=== PATIENT | male | born 1945 | race Caucasian/White ===

== ENCOUNTER 2017-05-04 09:02 | Inpatient (IN) | payer MEDICARE ==
[~2017-05-04] VITALS: Ht 174 cm; Wt 64.0 kg
[2017-05-04] VITALS (10 sets, daily range): BP systolic 97–119; BP diastolic 54–63; PULSE 86–101; RESP 16–20; TEMP 96.9–99.8; O2SAT 90–99
[~2017-05-04 09:02] MED LIST: ALLO300 PO; COLC.6 PO; NIFE1TAB85 PO; OMEP20TA39 PO
[2017-05-04] MEDS ORDERED: SODIUM CHLOR 0.9% 1000 ML INJ 1,000 ML IV SCH (09:26)
[2017-05-04] MEDS ORDERED: ONDANSETRON HCL 4 MG/2 ML VIAL IVP ONE (09:30)
[2017-05-04] MEDS ORDERED: FAMOTIDINE 20 MG/2 ML VIAL IV PUSH ONE (09:30)
[2017-05-04] MEDS ORDERED: SODIUM CHLORIDE 0.9% FLUSH 10 ML FLUSH IV FLUSH PRN ×2 (09:30→15:00)
--- NOTE | 2017-05-04 09:32 | PD ---
HPI Chief Complaint: General Weakness Time Seen by Provider: 09:17 Travel History International Travel<30 days: No Contact w/Intl Traveler<30days: No Traveled to known affect area: No History of Present Illness HPI The patient is a 72-year-old male who presents emergency department for generalized weakness and difficulty swallowing. The patient states his symptoms started on Friday with posterior sore throat, he then developed a dry nonproductive cough, now has difficulty swallowing. The patient is able swallow liquids, but has difficulty swallowing solids. He now complains of epigastric discomfort. 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 Valenzuela. The patient is scheduled undergo left hip surgery in the near future, saw his primary physician , Dr. Vasquez Hernandez, who referred him to a magnet valve assembler. The patient is scheduled undergo endoscopy next Friday. He has seemed Dr. Rob in the past, but is unsure who is scheduled to perform the endoscopy. He denies any fever, but does note subjective warmth. He does complain of epigastric discomfort and a few episodes of diarrhea. He denies any dysuria, chest pain, shortness of breath. Symptoms are moderate. PFSH Past Medical History Blood Disorders: No Cancer: Yes (SKIN, LYMPHOMA) Cardiovascular Problems: No Chest Pain: No Diabetes: No Diminished Hearing: No Endocrine: No Gastrointestinal Disorders: Yes (ULCER) Glaucoma: No Genitourinary: No Hepatitis: No Hiatal Hernia: Yes Hypertension: Yes Immune Disorder: No Medical other: Yes (ESCALANTE'S ESOPHAGUS) Musculoskeletal: No Neurologic: No Psychiatric: No Reproductive: No Respiratory: No Integumentary: No Thyroid Disease: No Past Surgical History Abdominal Surgery: Yes (LITHOTRIPSY, STONE REMOVAL) Body Medical Devices: RIGHT FEMUR PLATES AND SCREWS, Cardiac Surgery: Yes (STENT BELOW LEFT KNEE) Eye Surgery: Yes (BILAT. CAT. SX) Genitourinary Surgery: Yes (LEFT KIDNEY STONES,) Joint Replacement: No Pacemaker: No Other Surgery: Yes (STRETCHING OF ESOPHAGUS) Social History Alcohol Use: Yes Tobacco Use: Yes (FORMER) Substance Use: No Allergies-Medications (Allergen,Severity, Reaction): Coded Allergies: amlodipine (Unverified Allergy, Severe, 05/04/17) benazepril (Unverified Allergy, Severe, 05/04/17) captopril (Unverified Allergy, Severe, 05/04/17) enalaprilat (Unverified Allergy, Severe, 05/04/17) fosinopril (Unverified Allergy, Severe, 05/04/17) gabapentin (Unverified Allergy, Severe, 05/04/17) gemfibrozil (Unverified Allergy, Severe, 05/04/17) lisinopril (Unverified Allergy, Severe, 05/04/17) quinapril (Unverified Allergy, Severe, 05/04/17) Reported Meds & Prescriptions Reported Meds & Active Scripts Active Colcrys (Colchicine) 0.6 Mg Tab 0.6 Mg PO BID Zyloprim 300 Mg Tab (Allopurinol) 300 Mg Tab 300 Mg PO DAILY Reported Hm Omeprazole (Omeprazole) 20 Mg Tab 20 Mg PO DAILY Procardia Xl (Nifedipine) 30 Mg Tabcr 30 Mg PO DAILY Review of Systems Except as stated in HPI: all other systems reviewed are Neg General / Constitutional: No: Fever HENT: Positive: Sore Throat, No: Headaches, Lightheadedness Cardiovascular: No: Chest Pain or Discomfort Respiratory: No: Shortness of Breath Gastrointestinal: Positive: Nausea, Vomiting, Diarrhea, Abdominal Pain, Dysphagia Genitourinary: No: Dysuria Musculoskeletal: Positive: Weakness Neurologic: Positive: Weakness Physical Exam Narrative GENERAL: Awake, alert, 72 over male who appears his stated age and is in no acute respiratory distress. SKIN: Focused skin assessment warm/dry. HEAD: Atraumatic. Normocephalic. EYES: No injection or drainage. ENT: No nasal bleeding or discharge. Cobblestoning noted but no exudate. NECK: Trachea midline. No JVD. CARDIOVASCULAR: Regular rate and rhythm. No murmur appreciated. Heart rate in the 90s. RESPIRATORY: No accessory muscle use. Clear to auscultation. Breath sounds equal bilaterally. GASTROINTESTINAL: Abdomen soft, minimal epigastric tenderness.. MUSCULOSKELETAL: No obvious deformities. No clubbing. No cyanosis. No edema. NEUROLOGICAL: Awake and alert. No obvious cranial nerve deficits. Motor grossly within normal limits. Normal speech. PSYCHIATRIC: Appropriate mood and affect; insight and judgment normal. Data Data Last Documented VS Vital Signs Date Time Temp Pulse Resp B/P (MAP) Pulse Ox O2 Delivery O2 Flow Rate FiO2 05/04/17 10:38 18 96 Nasal Cannula 3.00 05/04/17 09:10 99.8 97 112/59 (76) Orders Orders Complete Blood Count With Diff (05/04/17:) Comprehensive Metabolic Panel (05/04/17) Lipase (05/04/17:) Lactic Acid (05/04/17:) Urinalysis - C+S If Indicated (05/04/17) Iv Access Insert/Monitor (05/04/17) Ecg Monitoring (05/04/17) Oximetry (05/04/17:) Ondansetron Inj (Zofran Inj) (05/04/17:30) Sodium Chlor 0.9% 1000 Ml Inj (Ns 1000 M (05/04/17:) Sodium Chloride 0.9% Flush (Ns Flush) (05/04/17:) Electrocardiogram (05/04/17:) Chest, Single Ap (05/04/17:) Famotidine Inj (Pepcid Inj) (05/04/17 09:30) Influenzae A/B Antigen (05/04/17:) Blood Culture (05/04/17:) Gastrografin Swallow (05/04/17 ) B-Type Natriuretic Peptide (05/04/17 10:56) Troponin I (05/04/17 10:56) Creatine Kinase (Cpk) (05/04/17 10:56) Admit Order (Ed Use Only) (05/04/17 11:15) Labs Laboratory Tests Test 05/04/17:30 White Blood Count 7.6 TH/MM3 Red Blood Count 2.92 MIL/MM3 Hemoglobin 10.7 GM/DL Hematocrit 29.0 % Mean Corpuscular Volume 99.3 FL Mean Corpuscular Hemoglobin 36.8 PG Mean Corpuscular Hemoglobin Concent 37.0 % Red Cell Distribution Width 12.9 % Platelet Count 275 TH/MM3 Mean Platelet Volume 7.5 FL Neutrophils (%) (Auto) 80.3 % Lymphocytes (%) (Auto) 8.2 % Monocytes (%) (Auto) 10.8 % Eosinophils (%) (Auto) 0.4 % Basophils (%) (Auto) 0.3 % Neutrophils # (Auto) 6.1 TH/MM3 Lymphocytes # (Auto) 0.6 TH/MM3 Monocytes # (Auto) 0.8 TH/MM3 Eosinophils # (Auto) 0.0 TH/MM3 Basophils # (Auto) 0.0 TH/MM3 CBC Comment AUTO DIFF Differential Comment AUTO DIFF CONFIRMED Ovalocytes Blood Urea Nitrogen 38 MG/DL Creatinine 1.37 MG/DL Random Glucose 110 MG/DL Total Protein 9.0 GM/DL Albumin 2.0 GM/DL Calcium Level 8.7 MG/DL Alkaline Phosphatase 131 U/L Aspartate Amino Transf (AST/SGOT) 44 U/L Alanine Aminotransferase (ALT/SGPT) 30 U/L Total Bilirubin 0.5 MG/DL Sodium Level 120 MEQ/L Potassium Level 3.4 MEQ/L Chloride Level 88 MEQ/L Carbon Dioxide Level 23.3 MEQ/L Anion Gap 9 MEQ/L Estimat Glomerular Filtration Rate 51 ML/MIN Lactic Acid Level 1.0 mmol/L Lipase 207 U/L [facility] Medical Decision Making Medical Screen Exam Complete: Yes Emergency Medical Condition: Yes Medical Record Reviewed: Yes Interpretation(s) EKG reveals sinus rhythm with occasional supraventricular premature complex. Nonspecific T wave changes. Heart rate 90. Last Impressions Chest X-Ray 05/04/17 0926 Signed Impressions: Service Date/Time: Thursday, May 04, 2017 09:49 - CONCLUSION: 1. Interstitial vascular prominence characteristic of congestive heart failure. 2. Bibasilar airspace disease. 3. Small bilateral effusions. Crispin Nguyen MD Upper GI/Barium Swallow X-Ray 05/04/17 0000 Signed Impressions: Service Date/Time: Thursday, May 04, 2017 10:10 - CONCLUSION: No evidence of stricture. Crispin Nguyen MD Laboratory Tests Test 05/04/17 09:30 White Blood Count 7.6 TH/MM3 Red Blood Count 2.92 MIL/MM3 Hemoglobin 10.7 GM/DL Hematocrit 29.0 % Mean Corpuscular Volume 99.3 FL Mean Corpuscular Hemoglobin 36.8 PG Mean Corpuscular Hemoglobin Concent 37.0 % Red Cell Distribution Width 12.9 % Platelet Count 275 TH/MM3 Mean Platelet Volume 7.5 FL Neutrophils (%) (Auto) 80.3 % Lymphocytes (%) (Auto) 8.2 % Monocytes (%) (Auto) 10.8 % Eosinophils (%) (Auto) 0.4 % Basophils (%) (Auto) 0.3 % Neutrophils # (Auto) 6.1 TH/MM3 Lymphocytes # (Auto) 0.6 TH/MM3 Monocytes # (Auto) 0.8 TH/MM3 Eosinophils # (Auto) 0.0 TH/MM3 Basophils # (Auto) 0.0 TH/MM3 CBC Comment AUTO DIFF Differential Comment AUTO DIFF CONFIRMED Ovalocytes Blood Urea Nitrogen 38 MG/DL Creatinine 1.37 MG/DL Random Glucose 110 MG/DL Total Protein 9.0 GM/DL Albumin 2.0 GM/DL Calcium Level 8.7 MG/DL Alkaline Phosphatase 131 U/L Aspartate Amino Transf (AST/SGOT) 44 U/L Alanine Aminotransferase (ALT/SGPT) 30 U/L Total Bilirubin 0.5 MG/DL Sodium Level 120 MEQ/L Potassium Level 3.4 MEQ/L Chloride Level 88 MEQ/L Carbon Dioxide Level 23.3 MEQ/L Anion Gap 9 MEQ/L Estimat Glomerular Filtration Rate 51 ML/MIN Lactic Acid Level 1.0 mmol/L Lipase 207 U/L Differential Diagnosis Differential diagnosis includes achalasia, stricture, esophageal motility disorder, sepsis, gastritis, GERD, esophageal spasm, pancreatitis, dehydration, electrolyte abnormality, pneumonia, influenza. Narrative Course IV was established, labs are drawn and sent, and the patient was placed on video telemetry monitoring and continuous pulse oximetry monitoring. EKG was ordered and interpreted. The patient was administered IV fluids, Zofran, and Pepcid. Gastrografin swallow was ordered. Chest x-ray reveals questionable pulmonary edema. Gastrografin swallow reveals no obvious stricture. Sodium is low 120, EMR reveals previous sodiums were 133. The patient appears somewhat dehydrated with lethargy, BNP and troponin were sent to lab with abnormal chest x-ray finding. Patient has for healthcare, therefore, discussed the patient with Dr. Francisco who agrees with admission. He may benefit from evaluation by GI for possible endoscopy while in the hospital. Physician Communication Physician Communication I discussed the patient with Dr. Francisco who agrees with admission. Diagnosis Primary Impression: Hyponatremia Additional Impressions: Dehydration Dysphagia Qualified Codes: R13.10 - Dysphagia, unspecified Condition: Stable Zeb Michel MD May 04, 2017 09:32
[2017-05-04 09:57] LABS: AUTOMATED NEUTROPHIL # 6.1 TH/MM3 (1.8-7.7); BASOPHIL % 0.3 % (0.0-2.0); EOSINOPHIL % 0.4 % (0.0-4.0); HEMOGLOBIN 10.7 GM/DL (13.0-17.0); LYMPH % 8.2 % (9.0-44.0); LYMPHOCYTE # 0.6 TH/MM3 (1.0-4.8); MEAN CELL VOLUME 99.3 FL (80.0-100.0); MEAN CORPUSCULAR HEMOGLOBIN 36.8 PG (27.0-34.0); MEAN PLATELET VOLUME 7.5 FL (7.0-11.0); MONO % 10.8 % (0.0-8.0); MONOCYTE # 0.8 TH/MM3 (0-0.9); NEUT % 80.3 % (16.0-70.0); PLATELET COUNT 275 TH/MM3 (150-450); RED BLOOD COUNT 2.92 MIL/MM3 (4.50-5.90); RED CELL DISTRIBUTION WIDTH 12.9 % (11.6-17.2); WHITE BLOOD COUNT 7.6 TH/MM3 (4.0-11.0)
[2017-05-04 10:39] LABS: ALKALINE PHOSPHATASE 131 U/L (45-117); ALT (GPT) 30 U/L (12-78); AST (GOT) 44 U/L (15-37); BICARBONATE 23.3 MEQ/L (21.0-32.0); BLOOD UREA NITROGEN 38 MG/DL (7-18); CALCIUM 8.7 MG/DL (8.5-10.1); CHLORIDE 88 MEQ/L (98-107); CREATININE 1.37 MG/DL (0.60-1.30); GLOMERULAR FILTRATION RATE 51 ML/MIN (>89); GLUCOSE,RANDOM 110 MG/DL (74-106); TOTAL BILIRUBIN ADULT 0.5 MG/DL (0.2-1.0)
[2017-05-04 10:40] LABS: SODIUM (NA) 120 MEQ/L (136-145)
--- NOTE | 2017-05-04 10:51 | RADRPT ---
EXAM DATE/TIME: 05/04/2017 09:49 [facility] COMPARISON: No previous studies available for comparison. INDICATIONS : Cough. Short of breath. MEDICAL HISTORY : None. SURGICAL HISTORY : Esophagus surgery. ENCOUNTER: Initial ACUITY: 2 weeks PAIN SCORE: 0/10 LOCATION: Bilateral chest FINDINGS: A single view of the chest demonstrates bilateral interstitial vascular congestion. Basilar airspace disease is identified. Costophrenic angles are mildly blunted. CONCLUSION: 1. Interstitial vascular prominence characteristic of congestive heart failure. 2. Bibasilar airspace disease. 3. Small bilateral effusions. Crispin Nguyen MD on May 04, 2017 at 10:48 Board Certified Radiologist. This report was verified electronically.
--- NOTE | 2017-05-04 10:53 | RADRPT ---
EXAM DATE/TIME: 05/04/2017 10:10 [facility] COMPARISON: No previous studies available for comparison. INDICATIONS : Stricture. FLUORO TIME: 0.8 minutes IMAGE COUNT: 6 CONTRAST: 1. Gastrografin (Diatrizoate Meglumine and Diatrizoate Sodium) MEDICAL HISTORY : None. SURGICAL HISTORY : Esophagus surgery. ENCOUNTER: Initial ACUITY: 2 weeks PAIN SCORE: 0/10 LOCATION: Esophagus. FINDINGS: Patient swallowed contrast without difficulty. There is no evidence of aspiration or penetration. T he body of the esophagus is unremarkable. The esophageal transit time is normal. No stricture or significant hiatal hernia is identified. The stomach is grossly unremarkable. CONCLUSION: No evidence of stricture. Crispin Nguyen MD on May 04, 2017 at 10:50 Board Certified Radiologist. This report was verified electronically.
[2017-05-04 12:45] LABS: TROPONIN I 0.94 NG/ML (0.02-0.05)
[2017-05-04] MEDS ORDERED: NIFE10 PO (12:52)
[2017-05-04] MEDS ORDERED: ASPI-516 CHEW (12:52)
[2017-05-04] MEDS ORDERED: OMEP20TA93 PO (12:52)
[2017-05-04] MEDS ORDERED: ASPIRIN 81 MG CHEW TAB CHEW ONE (13:00)
[2017-05-04 13:49] LABS: BACTERIA, URINE RARE /hpf; BILIRUBIN, URINE NEG (NEG); BLOOD, URINE NEG (NEG); GLUCOSE,URINE NEG (NEG); HYALINE CAST, URINE 1 /lpf (RARE); KETONE, URINE NEG (NEG); MUCUS URINE FEW /lpf (OCC); NITRITE,URINE NEG (NEG); PH, URINE 5.5 (5.0-8.5); URINE COLOR YELLOW (YELLW/STRAW); URINE LEUKOCYTE ESTERASE NEG (NEG)
[2017-05-04] MEDS ORDERED: methylPREDNISolone SOD SUCC 125 MG/2 ML VIAL IV PUSH ONE (16:45)
[2017-05-04] MEDS ORDERED: NS + KCL 20 MEQ INJ 1,000 ML IV SCH (16:45)
[2017-05-04] MEDS ORDERED: ONDANSETRON HCL 4 MG/2 ML VIAL IV PUSH PRN (16:45)
--- NOTE | 2017-05-04 16:48 | HHI.HP ---
HPI Service [facility] Hospitalists Primary Care Physician Theresa Griffin MD Admission Diagnosis hyponatremia, dehydration, dysphagia Chief Complaint: cough/unable to swallow Travel History International Travel<30 Days: No Contact w/Intl Traveler <30 Da: No Traveled to Known Affected Are: No History of Present Illness Patient is 72 yo with achalasia,, pad, hx NHL, mgus, htn who presents with difficulty swallowing primarily solids and with persistent cough. The patient presents with a worsening of his dysphagia over past week. He is having trouble swallowing solids and sometimes liquids. The food regurgitates after about 20minutes. The patient denies aspiration. In the past for his achalasia [facility] would perform botox /dilations. Then Dr Mg performed a Heller myotomy and surjit Fundoplication 2015. Seen by GI on 05/02 and they had an egd and dilation planned for this Friday. labwork last week showed dehydration and also NA 120 on 04/30..BL na is around 129/130 Review of Systems Other cough unable to swallow mostly solids. Past Family Social History Past Medical History NHL. radiation MGUS umbilical hernia cataracts right femur fx/orif kidney stones right hip OA achalasia. hx botox/dilations ..Heller myotomy..surjit Fundoplication 2016 gout hyperlipidemia htn PAD. stenting right sfa skin ca..scc mild hyponatremia. Reported Medications Aspirin 81 Mg Chew 81 Mg CHEW DAILY Omeprazole 20 Mg Tab 20 Mg PO DAILY Procardia (Nifedipine) 10 Mg Cap 30 Mg PO DAILY Allergies: Coded Allergies: amlodipine (Unverified Allergy, Severe, 05/04/17) benazepril (Unverified Allergy, Severe, 05/04/17) captopril (Unverified Allergy, Severe, 05/04/17) enalaprilat (Unverified Allergy, Severe, 05/04/17) fosinopril (Unverified Allergy, Severe, 05/04/17) gabapentin (Unverified Allergy, Severe, 05/04/17) gemfibrozil (Unverified Allergy, Severe, 05/04/17) lisinopril (Unverified Allergy, Severe, 05/04/17) quinapril (Unverified Allergy, Severe, 05/04/17) Family History [place] Social History no quit tob 41yrs ago after 1ppd x 15yrs 5-6 drinks per day/whiskey. none in past week. Physical Exam Vital Signs heart reg lung yamil rhonci no jvd abd s/nt ext no edema Vital Signs Date Time Temp Pulse Resp B/P (MAP) Pulse Ox O2 Delivery O2 Flow Rate FiO2 05/04/17 15:22 05/04/17 14:00 92 18 102/58 (73) 97 Nasal Cannula 3.00 05/04/17 13:00 88 18 102/59 (73) 92 Nasal Cannula 3.00 05/04/17 11:00 88 18 102/56 (71) 93 Nasal Cannula 3.00 05/04/17 10:38 18 96 Nasal Cannula 3.00 05/04/17 10:00 86 16 97/54 (68) 94 Nasal Cannula 3.00 05/04/17 09:10 99.8 97 18 112/59 (76) 95 Laboratory Laboratory Tests Test 05/04/17 09:30 05/04/17 11:25 05/04/17 13:28 White Blood Count 7.6 Red Blood Count 2.92 Hemoglobin 10.7 Hematocrit 29.0 Mean Corpuscular Volume 99.3 Mean Corpuscular Hemoglobin 36.8 Mean Corpuscular Hemoglobin Concent 37.0 Red Cell Distribution Width 12.9 Platelet Count 275 Mean Platelet Volume 7.5 Neutrophils (%) (Auto) 80.3 Lymphocytes (%) (Auto) 8.2 Monocytes (%) (Auto) 10.8 Eosinophils (%) (Auto) 0.4 Basophils (%) (Auto) 0.3 Neutrophils # (Auto) 6.1 Lymphocytes # (Auto) 0.6 Monocytes # (Auto) 0.8 Eosinophils # (Auto) 0.0 Basophils # (Auto) 0.0 CBC Comment AUTO DIFF Differential Comment AUTO DIFF CONFIRMED Ovalocytes Blood Urea Nitrogen 38 Creatinine 1.37 Random Glucose 110 Total Protein 9.0 Albumin 2.0 Calcium Level 8.7 Alkaline Phosphatase 131 Aspartate Amino Transf (AST/SGOT) 44 Alanine Aminotransferase (ALT/SGPT) 30 Total Bilirubin 0.5 Sodium Level 120 Potassium Level 3.4 Chloride Level 88 Carbon Dioxide Level 23.3 Anion Gap 9 Estimat Glomerular Filtration Rate 51 Lactic Acid Level 1.0 Total Creatine Kinase 68 Troponin I 0.94 Lipase 207 B-Type Natriuretic Peptide 3901 Urine Color YELLOW Urine Turbidity CLEAR Urine pH 5.5 Urine Specific [place] 1.016 Urine Protein 30 Urine Glucose (UA) NEG Urine Ketones NEG Urine Occult Blood NEG Urine Nitrite NEG Urine Bilirubin NEG Urine Urobilinogen LESS THAN 2.0 Urine Leukocyte Esterase NEG Urine RBC 1 Urine WBC 1 Urine Bacteria RARE Urine Hyaline Casts 1 Urine Mucus FEW Microscopic Urinalysis Comment CULT NOT INDICATED Date/Time Source Procedure Growth Status 05/04/17 09:39 Blood Peripheral Aerobic Blood Culture Pending Received 05/04/17 09:39 Blood Peripheral Anaerobic Blood Culture Pending Received 05/04/17 09:33 Nasal Aspirate Influenza Types A,B Antigen (SUJIT) - Final NEGATIVE FOR FLU A AND B ANTIGEN.... Complete Result Diagram: 05/04/1730 05/04/1730 Caprini VTE Risk Assessment Caprini VTE Risk Assessment: Mod/High Risk (score >= 2) Caprini Risk Assessment Model Point Value = 1 Point Value = 2 Point Value = 3 Point Value = 5 Age 41-60 Minor surgery BMI > 25 kg/m2 Swollen legs Varicose veins or History of unexplained or recurrent spontaneous Oral contraceptives or hormone replacement Sepsis (< 1 month) Serious lung disease, including pneumonia (< 1 month) Abnormal pulmonary function Acute myocardial infarction Congestive heart failure (< 1 month) History of inflammatory bowel disease Medical patient at bed rest Age 61-74 Arthroscopic surgery Major open surgery (> 45 min) Laparoscopic surgery (> 45 min) Malignancy Confined to bed (> 72 hours) Immobilizing plaster cast Central venous access Age >= 75 History of VTE Family history of VTE Factor V Leiden Prothrombin [id number] Lupus anticoagulant Anticardiolipin antibodies Elevated serum homocysteine Heparin-induced thrombocytopenia Other congenital or acquired thrombophilia Stroke (< 1 month) Elective arthroplasty Hip, pelvis, or leg fracture Acute spinal cord injury (< 1 month) Prophylaxis Regimen Total Risk Factor Score Risk Level Prophylaxis Regimen 0-1 Low Early ambulation 2 Moderate Order ONE of the following: *Sequential Compression Device (SCD) *Heparin 5000 units SQ BID 3-4 Higher Order ONE of the following medications: *Heparin 5000 units SQ TID *Enoxaparin/Lovenox 40 mg SQ daily (WT < 150 kg, CrCl > 30 mL/min) *Enoxaparin/Lovenox 30 mg SQ daily (WT < 150 kg, CrCl > 10-29 mL/min) *Enoxaparin/Lovenox 30 mg SQ BID (WT < 150 kg, CrCl > 30 mL/min) AND/OR *Sequential Compression Device (SCD) 5 or more Highest Order ONE of the following medications: *Heparin 5000 units SQ TID (Preferred with Epidurals) *Enoxaparin/Lovenox 40 mg SQ daily (WT < 150 kg, CrCl > 30 mL/min) *Enoxaparin/Lovenox 30 mg SQ daily (WT < 150 kg, CrCl > 10-29 mL/min) *Enoxaparin/Lovenox 30 mg SQ BID (WT < 150 kg, CrCl > 30 mL/min) AND *Sequential Compression Device (SCD) Assessment and Plan Problem List: (1) Dysphagia ICD Codes: R13.10 - Dysphagia, unspecified Status: Acute Plan: Patient is 72 yo with achalasia,, pad, hx NHL, mgus, htn who presents with difficulty swallowing primarily solids and with persistent cough. The patient presents with a worsening of his dysphagia over past week. He is having trouble swallowing solids and sometimes liquids. The food regurgitates after about 20minutes. The patient denies aspiration. In the past for his achalasia [facility] would perform botox /dilations. Then Dr Mg performed a Heller myotomy and surjit Fundoplication 2015. Seen by GI on 05/02 and they had an egd and dilation planned for this Friday. labwork last week showed dehydration and also NA 120 on 04/30..BL na is around 129/130 1. dysphagia/achalasia 2. hyponatremia. most likely dehydration related 3. mary. dehydration related 4. cough/bilateral rhonci..could be pneumonitis but no clear aspiration hx. will exclude new pulmonary edema. 5. hx NHL and MGUS. 6. PAD 7. HTN 8. ETOH use. 9. elevated troponin. no cp. plan: consult GI to eval dysphagia. They had egd/dilation scheduled for this week in clinic gentle ivf with recheck of NA and slow correction. need to exclude LV dysfunction/chf...echo eval ct chest to differentiat edema/pneumonitis nebs/dose solumedrol dvt prophylaxis home meds. trend the troponin. no chest pain (2) Hyponatremia ICD Codes: E87.1 - Hypo-osmolality and hyponatremia Status: Acute (3) Dehydration ICD Codes: E86.0 - Dehydration Status: Acute (4) HTN (hypertension) ICD Codes: I10 - Essential (primary) hypertension Status: Chronic (5) MGUS (monoclonal gammopathy of unknown significance) ICD Codes: D47.2 - Monoclonal gammopathy Status: Chronic (6) NHL (non-Hodgkin's lymphoma) ICD Codes: C85.90 - Non-Hodgkin lymphoma, unspecified, unspecified site Status: Resolved (7) PAD (peripheral artery disease) ICD Codes: I73.9 - PAD (peripheral artery disease) Status: Chronic Physician Certification 2 Midnight Certification Type: Admission for Inpatient Services Order for Inpatient Services 3The services are ordered in accordance with Medicare regulations or non- Medicare payer requirements, as applicable. In the case of services not specified as inpatient-only, they are appropriately provided as inpatient services in accordance with the 2-midnight benchmark. Estimated LOS (days): 3 3 days is the estimated time the patient will need to remain in the hospital, assuming treatment plan goals are met and no additional complications. Post-Hospital Plan: Home Problem Qualifiers (1) Dysphagia: Qualified Codes: R13.10 - Dysphagia, unspecified Lucas Francisco MD May 04, 2017 16:48
--- NOTE | 2017-05-04 17:29 | RADRPT ---
EXAM DATE/TIME: 05/04/2017 17:09 [facility] COMPARISON: CHEST SINGLE AP, May 04, 2017, 9:49. INDICATIONS : Increased shortness of breath. RADIATION DOSE: 8.84 CTDIvol (mGy) MEDICAL HISTORY : New's esophagus. SURGICAL HISTORY : None. ENCOUNTER: Initial ACUITY: 1 day PAIN SCALE: 0/10 LOCATION: chest TECHNIQUE: Volumetric scanning of the chest was performed. Using automated exposure control and adjustment of t he mA and/or kV according to patient size, radiation dose was kept as low as reasonably achievable to obtain optimal diagnostic quality images. DICOM format image data is available electronically for r eview and comparison. Follow-up recommendations for detected pulmonary nodules are based at a minimum on nodule size and pa tient risk factors according to Fleischner Society Guidelines. FINDINGS: LUNGS: Scattered areas of focal air space opacity in the periphery of the upper lungs bilaterally and bilate ral patchy airspace opacities in the bilateral lower lobes. No focal mass seen.. PLEURAE: Moderate sized bilateral pleural effusions, measuring up to 3.2 cm on the right side and 2.8 cm on th e left side. MEDIASTINUM: There are multiple mildly prominent middle and superior mediastinal lymph nodes which measure up to 1 .3 cm in dimension and include periaortic, AP window, pre-tracheal and subcarinal regions. Coronary artery calcifications. AXILLAE: Within normal limits. No lymphadenopathy. MUSCULOSKELETAL: Within normal limits for patient age. MISCELLANEOUS: 3.5 cm with hiatus hernia. The entire esophagus is moderately gaseous distended. CONCLUSION: 1. Moderate-sized bilateral pleural effusions and patchy areas of airspace opacity throughout both gui ngs. 2. Nonspecific superior and middle mediastinal lymph nodes which are only slightly enlarged, measurin g up to 1.3 cm. Russel Evans MD on May 04, 2017 at 17:24 Board Certified Radiologist. This report was verified electronically.
[2017-05-04] MEDS ORDERED: PANTOPRAZOLE SODIUM 40 MG VIAL IV PUSH SCH (18:00)
[2017-05-04] MEDS: NS + KCL 20 MEQ INJ 1,000 ML IV SCH (19:22)
[2017-05-04] MEDS: RESP: ALBUTEROL 2.5 MG/IPRATROPIUM 0.5 MG NEB (SCH) NEB (20:04)
[2017-05-04 20:58] LABS: TROPONIN I 0.77 NG/ML (0.02-0.05)
[2017-05-04] MEDS ORDERED: LORazepam 1 MG TAB PO PRN (21:15)
[2017-05-04] MEDS ORDERED: DIATRIZOATE MEGLUM/DIATRIZOATE SOD 120 ML BTL (for RAD DIAG) PO ONE (21:39)
[2017-05-04] MEDS: SODIUM CHLORIDE 0.9% FLUSH 10 ML FLUSH IV FLUSH SCH (21:50)
[2017-05-04] MEDS ORDERED: ENOXAPARIN SODIUM 60 MG/0.6 ML SYRINGE SQ ONE (22:00)
[2017-05-05] VITALS (11 sets, daily range): BP systolic 102–138; BP diastolic 59–79; PULSE 81–123; RESP 16–19; TEMP 95.7–96.6; O2SAT 90–100
[2017-05-05] MEDS: BENZONATATE 100 MG CAP PO PRN (01:12)
[2017-05-05] MEDS: RESP: ALBUTEROL 2.5 MG/IPRATROPIUM 0.5 MG NEB (SCH) NEB ×4 (07:33→20:12)
[2017-05-05 07:46] LABS: TROPONIN I 0.35 NG/ML (0.02-0.05)
[2017-05-05] MEDS ORDERED: NIFEdipine 10 MG CAP PO SCH (09:00)
[2017-05-05] MEDS: SODIUM CHLORIDE 0.9% FLUSH 10 ML FLUSH IV FLUSH SCH ×2 (09:00→19:47)
[2017-05-05] MEDS: ASPIRIN 81 MG CHEW TAB CHEW SCH (09:48)
--- NOTE | 2017-05-05 12:11 | HHI.PR ---
Subjective Remarks Pt complaining about recommended modified diet He is noted to be tremulous at the time of examination and reports that he normally drinks 4-5 alcoholic beverages per day. He denies any hx of alcohol withdrawal previously Objective Vitals Vital Signs Date Time Temp Pulse Resp B/P (MAP) Pulse Ox O2 Delivery O2 Flow Rate FiO2 05/05/17 09:54 Nasal Cannula 2.00 05/05/17 08:00 95.7 99 18 112/59 (76) 100 05/05/17 07:35 92 Nasal Cannula 2.00 05/05/17 05:42 96.0 86 16 102/59 (73) 95 05/05/17 04:12 81 05/05/17 00:21 81 05/05/17 00:00 96.6 83 18 113/63 (80) 90 05/04/17 21:51 101 05/04/17 20:08 93 Nasal Cannula 2.00 05/04/17 20:00 Nasal Cannula 2.00 05/04/17 20:00 98.9 96 18 112/63 (79) 90 05/04/17 16:00 96.9 95 20 119/62 (81) 99 05/04/17 15:22 05/04/17 14:00 92 18 102/58 (73) 97 Nasal Cannula 3.00 05/04/17 13:00 88 18 102/59 (73) 92 Nasal Cannula 3.00 Result Diagram: 05/04/17 0930 05/04/17 0930 Other Results Laboratory Tests Test 05/04/17 09:30 05/04/17 11:25 05/04/17 13:28 05/04/17 18:45 White Blood Count 7.6 TH/MM3 Red Blood Count 2.92 MIL/MM3 Hemoglobin 10.7 GM/DL Hematocrit 29.0 % Mean Corpuscular Volume 99.3 FL Mean Corpuscular Hemoglobin 36.8 PG Mean Corpuscular Hemoglobin Concent 37.0 % Red Cell Distribution Width 12.9 % Platelet Count 275 TH/MM3 Mean Platelet Volume 7.5 FL Neutrophils (%) (Auto) 80.3 % Lymphocytes (%) (Auto) 8.2 % Monocytes (%) (Auto) 10.8 % Eosinophils (%) (Auto) 0.4 % Basophils (%) (Auto) 0.3 % Neutrophils # (Auto) 6.1 TH/MM3 Lymphocytes # (Auto) 0.6 TH/MM3 Monocytes # (Auto) 0.8 TH/MM3 Eosinophils # (Auto) 0.0 TH/MM3 Basophils # (Auto) 0.0 TH/MM3 CBC Comment AUTO DIFF Differential Comment AUTO DIFF CONFIRMED Ovalocytes Blood Urea Nitrogen 38 MG/DL Creatinine 1.37 MG/DL Random Glucose 110 MG/DL Total Protein 9.0 GM/DL Albumin 2.0 GM/DL Calcium Level 8.7 MG/DL Alkaline Phosphatase 131 U/L Aspartate Amino Transf (AST/SGOT) 44 U/L Alanine Aminotransferase (ALT/SGPT) 30 U/L Total Bilirubin 0.5 MG/DL Sodium Level 120 MEQ/L Potassium Level 3.4 MEQ/L Chloride Level 88 MEQ/L Carbon Dioxide Level 23.3 MEQ/L Anion Gap 9 MEQ/L Estimat Glomerular Filtration Rate 51 ML/MIN Lactic Acid Level 1.0 mmol/L Total Creatine Kinase 68 U/L 53 U/L Troponin I 0.94 NG/ML 0.77 NG/ML Lipase 207 U/L B-Type Natriuretic Peptide 3901 PG/ML Urine Color YELLOW Urine Turbidity CLEAR Urine pH 5.5 Urine Specific [place] 1.016 Urine Protein 30 mg/dL Urine Glucose (UA) NEG mg/dL Urine Ketones NEG mg/dL Urine Occult Blood NEG Urine Nitrite NEG Urine Bilirubin NEG Urine Urobilinogen LESS THAN 2.0 MG/DL Urine Leukocyte Esterase NEG Urine RBC 1 /hpf Urine WBC 1 /hpf Urine Bacteria RARE /hpf Urine Hyaline Casts 1 /lpf Urine Mucus FEW /lpf Microscopic Urinalysis Comment CULT NOT INDICATED Test 05/05/17 07:03 Total Creatine Kinase 36 U/L Troponin I 0.35 NG/ML Imaging Last Impressions Chest X-Ray 05/04/17 0926 Signed Impressions: Service Date/Time: Thursday, May 04, 2017 09:49 - CONCLUSION: 1. Interstitial vascular prominence characteristic of congestive heart failure. 2. Bibasilar airspace disease. 3. Small bilateral effusions. Crispin Nguyen MD Upper GI/Barium Swallow X-Ray 05/04/17 0000 Signed Impressions: Service Date/Time: Thursday, May 04, 2017 10:10 - CONCLUSION: No evidence of stricture. Crispin Nguyen MD Chest CT 05/04/17 0000 Signed Impressions: Service Date/Time: Thursday, May 04, 2017 17:09 - CONCLUSION: 1. Moderate-sized bilateral pleural effusions and patchy areas of airspace opacity throughout both lungs. 2. Nonspecific superior and middle mediastinal lymph nodes which are only slightly enlarged, measuring up to 1.3 cm. Russel Evans MD Objective Remarks General: NAD, AAOx3 Chest: CTA Cardiac: Tachy Abd: +BS, soft ND/NT Ext: No edema A/P Problem List: (1) Dysphagia ICD Codes: R13.10 - Dysphagia, unspecified Status: Acute Plan: - Patient is 72 yo with achalasia, PAD, hx NHL, MGUS, and HTN who presented with complaints of difficulty swallowing primarily solids and with persistent cough. The patient presents with a worsening of his dysphagia over past week. He is having trouble swallowing solids and sometimes liquids. The food regurgitates after about 20 minutes. The patient denies aspiration. - In the past he has followed with [facility] for his achalasia and has had Botox/dilations previously. Then Dr Mg performed a Heller myotomy and Ruslan Fundoplication in 2015. Pt was seen by GI on 05/02 and they had an EGD and dilation planned for this Friday. - Lab work last week showed dehydration and also NA 120 on 04/30, nut typically his Na+ is around 129/130 - UGI/Barium swallow (05/04) --> No evidence of stricture. - GI is consulted - ST evaluating --> recommending Mechanical soft food with chopped meat with gravy and thin liquids. - Pt is on gentle IVF with labs pending for evaluation for today - Protonic 40mg IV daily - Zofran PRN (2) Hyponatremia ICD Codes: E87.1 - Hypo-osmolality and hyponatremia Status: Acute Plan: - Its felt that the pts hyponatremia is most likely dehydration related - He is on IVF with NS with KCL @ 50mL/hr - Awaiting repeat labs for today to ensure slow correction - Pt also drinks alcohol daily - Ativan PRN (3) Dehydration ICD Codes: E86.0 - Dehydration Status: Acute Plan: - See above - Pt also with noted YOLANDA felt to be related to dehydration - Cr 1.37/BUN 38, GFR 51 at admission - Awaiting repeat labs for today (4) Elevated troponin ICD Codes: R74.8 - Abnormal levels of other serum enzymes Plan: - Pt has not had any chest pain - Troponin was noted to be elevated at admission at 0.94 --> 0.77 --> 0.35 (5) Cough ICD Codes: R05 - Cough Status: Acute Plan: - Pt with complaints of cough and had noted bilateral rhonchi at admission. - This could be pneumonitis but no clear aspiration hx. - CXR at admission noted interstitial vascular prominence characteristic of congestive heart failure, bibasilar airspace disease and small bilateral effusions. - Chest CT (05/05/17) --> Moderate-sized bilateral pleural effusions and patchy areas of airspace opacity throughout both lungs, nonspecific superior and middle mediastinal lymph nodes which are only slightly enlarged, measuring up to 1.3 cm. - 2D echo ordered to evaluate for LV dysfunction/CHF - Pt was given a dose of Solu-Medrol in the ED - Cont. Duonebs Q4H WA - Tessalon pearls PRN (6) HTN (hypertension) ICD Codes: I10 - Essential (primary) hypertension Status: Chronic Plan: - BP has been low/normal - Home BP meds on hold for now (7) EtOH dependence ICD Codes: F10.20 - Alcohol dependence, uncomplicated Status: Chronic Plan: - Pt drinks 4-5 alcoholic beverage per day - CIWA protocol ordered - Pt more tremulous today - Start Librium 10mg TID - Ativan PRN (8) MGUS (monoclonal gammopathy of unknown significance) ICD Codes: D47.2 - Monoclonal gammopathy Status: Chronic (9) NHL (non-Hodgkin's lymphoma) ICD Codes: C85.90 - Non-Hodgkin lymphoma, unspecified, unspecified site Status: Resolved (10) PAD (peripheral artery disease) ICD Codes: I73.9 - PAD (peripheral artery disease) Status: Chronic Assessment and Plan Patient examined. Assessment and plan formulated with Marcie Null PA-C. I agree with the above. Pt states that he drinks 5 - 6 beers daily. Pt is tremulous and tachycardic. Start CIWA protocol, ativan 1mg IV now. start librium 10mg TID. Obtain 12 lead EKG Problem Qualifiers (1) Dysphagia: Qualified Codes: R13.10 - Dysphagia, unspecified Marcie Null May 05, 2017 12:11 Ricardo Garzon DO May 05, 2017 16:14
[2017-05-05 13:52] LABS: BICARBONATE 19.5 MEQ/L (21.0-32.0); CALCIUM 8.6 MG/DL (8.5-10.1); CREATININE 1.33 MG/DL (0.60-1.30)
--- NOTE | 2017-05-05 14:40 | PD.CONS ---
HPI History of Present Illness This is a 72 year old M with GI history significant for achalasia and Barretts esophagus. Pt reports he has annual EGDs done, was scheduled to have a repeat EGD with Dr. Rob tomorrow. Pt presented to the ER yesterday with complaints of generalized weakness, cough, and dysphagia. Pt reports symptoms began on Friday after he cut his lawn, he felt the coughing was related to the grass that was kicked up by the cash register mechanic. Tried to self medicated with OTC cough medication, however, caused extreme burning sensation in his stomach. Denies associated nausea and vomiting. Dysphagia is mostly with solids, has been able to tolerate liquids. Regurgitates food soon after eating for the past week. Last EGD was approx a year ago, denies history of dilatation since having procedures done by Dr. Valenzuela. Pt had a Heller myotomy with Ruslan fundoplication done September 2015. Speech therapy recommending mechanical soft diet with chopped meat with gravy and thin liquids. Also complaining of diarrhea that began a few days prior to coming in. Denies fever, chills, recent abx, hematochezia, melena. Last colonoscopy was 405 years ago and pt states nomral exam. (Nevaeh Malloy) PFSH Past Medical History Non-Hodgkin lymphoma MGUS Umbilical hernia Cataracts Right femur fx Nephrolithiasis Right hip OA Achalasia Gout Hyperlipidemia HTN PAD Skin cancer Hyponatremia Past Surgical History Ruslan fundoplication with Heller myotomy- September 2015 (Nevaeh Malloy) Coded Allergies: amlodipine (Unverified Allergy, Severe, 05/04/17) benazepril (Unverified Allergy, Severe, 05/04/17) captopril (Unverified Allergy, Severe, 05/04/17) enalaprilat (Unverified Allergy, Severe, 05/04/17) fosinopril (Unverified Allergy, Severe, 05/04/17) gabapentin (Unverified Allergy, Severe, 05/04/17) gemfibrozil (Unverified Allergy, Severe, 05/04/17) lisinopril (Unverified Allergy, Severe, 05/04/17) quinapril (Unverified Allergy, Severe, 05/04/17) Social History ETOH_ 5-6 drinks a day Quit ETOH (Nevaeh Malloy) Review of Systems Gastrointestinal: COMPLAINS OF: Abdominal pain, Diarrhea, Difficulty Swallowing , Odynophagia, DENIES: Black stools, Bloody stools, Constipation, Nausea, Vomiting, Swelling of Abdomen, Heartburn, Hematemesis (Nevaeh Malloy) GI Exam Vitals I&O Vital Signs Date Time Temp Pulse Resp B/P (MAP) Pulse Ox O2 Delivery O2 Flow Rate FiO2 05/05/17 12:00 95.8 123 19 137/79 (98) 95 05/05/17 09:54 Nasal Cannula 2.00 05/05/17 08:00 95.7 99 18 112/59 (76) 100 05/05/17 07:35 92 Nasal Cannula 2.00 05/05/17 05:42 96.0 86 16 102/59 (73) 95 05/05/17 04:12 81 05/05/17 00:21 81 05/05/17 00:00 96.6 83 18 113/63 (80) 90 05/04/17 21:51 101 05/04/17 20:08 93 Nasal Cannula 2.00 05/04/17 20:00 Nasal Cannula 2.00 05/04/17 20:00 98.9 96 18 112/63 (79) 90 05/04/17 16:00 96.9 95 20 119/62 (81) 99 05/04/17 15:22 I/O 05/04/17 05/04/17 05/04/17 05/05/17 05/05/17 05/05/17 07:00 15:00 23:00 07:00 15:00 23:00 Intake Total 1000 ml Output Total 400 ml Balance 1000 ml -400 ml Intake IV Total 1000 ml Output Urine Total 400 ml # Voids 2 # Bowel Movements 1 Imaging Last Impressions Chest X-Ray 05/04/17 0926 Signed Impressions: Service Date/Time: Thursday, May 04, 2017 09:49 - CONCLUSION: 1. Interstitial vascular prominence characteristic of congestive heart failure. 2. Bibasilar airspace disease. 3. Small bilateral effusions. Crispin Nguyen MD Upper GI/Barium Swallow X-Ray 05/04/17 0000 Signed Impressions: Service Date/Time: Thursday, May 04, 2017 10:10 - CONCLUSION: No evidence of stricture. Crispin Nguyen MD Chest CT 05/04/17 0000 Signed Impressions: Service Date/Time: Thursday, May 04, 2017 17:09 - CONCLUSION: 1. Moderate-sized bilateral pleural effusions and patchy areas of airspace opacity throughout both lungs. 2. Nonspecific superior and middle mediastinal lymph nodes which are only slightly enlarged, measuring up to 1.3 cm. Russel Evans MD Laboratory Test 05/04/17 18:45 05/05/17 07:03 Total Creatine Kinase 53 U/L 36 U/L Troponin I 0.77 NG/ML 0.35 NG/ML Blood Urea Nitrogen 42 MG/DL Creatinine 1.33 MG/DL Random Glucose 154 MG/DL Calcium Level 8.6 MG/DL Sodium Level 127 MEQ/L Potassium Level 3.8 MEQ/L Chloride Level 97 MEQ/L Carbon Dioxide Level 19.5 MEQ/L Anion Gap 11 MEQ/L Estimat Glomerular Filtration Rate 53 ML/MIN Date/Time Source Procedure Growth Status 05/04/17 09:39 Blood Peripheral Aerobic Blood Culture - Preliminary NO GROWTH IN 1 DAY Resulted 05/04/17 09:39 Blood Peripheral Anaerobic Blood Culture - Preliminary NO GROWTH IN 1 DAY Resulted 05/04/17 09:33 Nasal Aspirate Influenza Types A,B Antigen (SUJIT) - Final NEGATIVE FOR FLU A AND B ANTIGEN.... Complete Physical Examination HEENT: Normocephalic; atraumatic CHEST: Even/unlabored CARDIAC: RRR ABDOMEN: Soft, nondistended, nontender; no hepatosplenomegaly; bowel sounds active SKIN: Normal; no rash. COMMUNITY SUPPORT SPECIALIST: No focal deficits; alert and oriented times three. (Nevaeh Malloy [facility]) Assessment and Plan Plan Assessment - Dysphagia mostly with solids, denies dysphagia with liquids. History of, has needed EGD with dilatation and Botox in the past, however, states has not needed dilation since Ruslan Fundoplication with Heller myotomy which was done September 2015. Last EGD was one years ago, states Barretts esophagus. Pt had an appt to have EGD with dilation done tomorrow. Symptoms worsening since Friday. Speech therapy recommendations noted --> Mechanical soft food with chopped meat with gravy and thin liquids. Barium swallow --> No evidence of stricture. - Diarrhea- started a few days prior to arrival. Denies fever, chills, recent abx. - Transaminitis- consistent with daily ETOH intake of 4-5 drinks a day - SOB/ CHF exacerbation- elevated BNP- per attending SpO2 95-100% on 2 L O2 Via NC - YOLANDA per attending Plan: EGD with dilation tomorrow Obtain consent NPO after MN Diet per speech therapy today Protonix Stool studies Further recommendations to follow based on findings of above Pt has been seen and examined by myself and Dr. Lorenzana and this note is written on his behalf (Nevaeh Malloy) Physician Comments Plan as above. EGD in AM Thank you for the consult. (Arlin Lorenzana MD) Neveah Malloy May 05, 2017 14:40 Arlin Lorenzana MD May 05, 2017 15:03
[2017-05-05] MEDS: NS + KCL 20 MEQ INJ 1,000 ML IV SCH (14:54)
[2017-05-05] MEDS ORDERED: LORazepam 2 MG TAB PO PRN (16:00)
[2017-05-05] MEDS ORDERED: FLUMAZENIL 0.5 MG/5 ML VIAL IV PUSH PRN (16:00)
[2017-05-05] MEDS ORDERED: LORazepam 2 MG/ML VIAL IV PUSH PRN ×3 (16:00)
[2017-05-05] MEDS ORDERED: LORazepam 1 MG TAB PO PRN (16:00)
[2017-05-05] MEDS: LORazepam 2 MG/ML VIAL IV PUSH PRN ×2 (16:20→21:48)
[2017-05-05] MEDS: PANTOPRAZOLE SODIUM 40 MG VIAL IV PUSH SCH (18:18)
--- NOTE | 2017-05-05 19:05 | EKG ---
Date Performed: 05/04/2017 Time Performed: 09:28:37 PTAGE: 72 years EKG: Sinus rhythm WITH OCCASIONAL SUPRAVENTRICULAR PREMATURE COMPLEXES MODERATE T-WAVE ABNORMALITY, CONSIDER ANTERIOR ISCHEMIA SEPTAL Myocardial infarction OF INDETERMINANT AGE WITH PERSISTENT ST SEGMENT ELEVATION IN LE ADS V1-V3 Compared to PREVIOUS TRACING , the criteria for the septal infarct are new. The lateral T wave change s are new. Signficant serial changes have occurred and tracing suggests possible Myocardial infarctio n since the prior tracing. Clincal correlation will be important ABNORMAL ECG INTERPRETATION BASED ON A DEFAULT AGE OF 40 YEARS PREVIOUS TRACIN10/28/2013 07.02 DOCTOR: Luly Moy Interpretating Date/Time 05/05/2017 19:04:52
--- NOTE | 2017-05-05 19:07 | EKG ---
Date Performed: 05/04/2017 Time Performed: 21:08:57 PTAGE: 72 years EKG: Sinus rhythm WITH SINUS ARRHYTHMIA INDETERMINATE AXIS LOW QRS VOLTAGE IN EXTREMITY LEADS ANTEROSEPTAL MYOCARDIAL INFARCTION , OF INDETERMINATE AGE WITH PERSISTENT ST SEGMENT ELEVATION Since the previous tracing, no significant serial change noted ABNORMAL ECG PREVIOUS TRACING : 05/04/2017 09.28 DOCTOR: Luly Moy Interpretating Date/Time 05/05/2017 19:05:30
[2017-05-06] VITALS (10 sets, daily range): BP systolic 120–151; BP diastolic 66–88; PULSE 80–109; RESP 18–21; TEMP 96.3–98.8; O2SAT 92–99
[2017-05-06] MEDS: BENZONATATE 100 MG CAP PO PRN ×2 (03:52→11:46)
[2017-05-06] MEDS: PANTOPRAZOLE SODIUM 40 MG VIAL IV PUSH SCH ×2 (06:02→17:40)
--- NOTE | 2017-05-06 06:31 | RADRPT ---
EXAM DATE/TIME: 05/06/2017 06:08 [place] COMPARISON: CHEST SINGLE AP, May 04, 2017, 9:49. INDICATIONS : Coughing, short of breath, evaluate effusion MEDICAL HISTORY : Enw's esophagus SURGICAL HISTORY : None. ENCOUNTER: Subsequent ACUITY: 3 days PAIN SCORE: 0/10 LOCATION: Bilateral chest FINDINGS: Worsening consolidation within the right lung. Left basilar consolidation is stable. Tiny bilateral p leural effusions are stable. Heart is normal in size. Sclerotic curvature. CONCLUSION: Worsening consolidation of the right lung. Left lower lobe consolidation is stable as are the small e ffusions. Russel Cutler Jr., MD on May 06, 2017 at 6:29 Board Certified Radiologist. This report was verified electronically.
[2017-05-06 07:24] LABS: AUTOMATED NEUTROPHIL # 5.8 TH/MM3 (1.8-7.7); BASOPHIL % 0.2 % (0.0-2.0); EOSINOPHIL # 0.1 TH/MM3 (0-0.4); EOSINOPHIL % 0.9 % (0.0-4.0); HEMATOCRIT 25.8 % (39.0-51.0); HEMOGLOBIN 9.5 GM/DL (13.0-17.0); LYMPH % 7.7 % (9.0-44.0); LYMPHOCYTE # 0.6 TH/MM3 (1.0-4.8); MEAN CELL VOLUME 100.6 FL (80.0-100.0); MEAN CORPUSCULAR HEMOGLOBIN 37.1 PG (27.0-34.0); MONO % 11.1 % (0.0-8.0); MONOCYTE # 0.8 TH/MM3 (0-0.9); NEUT % 80.1 % (16.0-70.0); PLATELET COUNT 331 TH/MM3 (150-450); RED BLOOD COUNT 2.56 MIL/MM3 (4.50-5.90); RED CELL DISTRIBUTION WIDTH 12.8 % (11.6-17.2); WHITE BLOOD COUNT 7.2 TH/MM3 (4.0-11.0)
[2017-05-06 07:32] LABS: MEAN CORPUSCULAR HGB CONC 36.9 % (32.0-36.0)
[2017-05-06] MEDS: RESP: ALBUTEROL 2.5 MG/IPRATROPIUM 0.5 MG NEB (SCH) NEB ×4 (07:41→20:28)
[2017-05-06 07:50] LABS: CREATININE 1.13 MG/DL (0.60-1.30); MAGNESIUM 1.9 MG/DL (1.5-2.5)
--- NOTE | 2017-05-06 09:41 | GIPROC ---
[facility] [address] [facility]. [facility], [id number] EGD PROCEDURE REPORT EXAM DATE: 05/06/2017 PATIENT NAME: Lucas Ayoub MR #: [id number] BIRTHDATE: 1945 ATTENDING: Arlin Lorenzana MD ORDER #: [id number] [employer]PER[employer]OR [employer] SALES: Yusuf Cespedes and Francesca Boateng STATUS: inpatient INDICATIONS: The patient is a 72 yr old male here for an EGD due to dysphagia PROCEDURE PERFORMED: EGD w/ biopsy MEDICATIONS: None and Per Anesthesia. TOPICAL ANESTHETIC: none CONSENT: The patient understands the risks and benefits of the procedure and understands that these risks include, but are not limited to: sedation, allergic reaction, infection, perforation and/or bleeding. Alternative means of evaluation and treatment include, among others: physical exam, x-rays, and/or surgical intervention. The patient elects to proceed with this endoscopic procedure. medical equipment was checked for proper function. Hand hygiene and appropriate measures for infection prevention was taken. After the risks, benefits and alternatives of the procedure were thoroughly explained, Informed consent was verified, confirmed and timeout was successfully executed by the treatment team. The patient was anesthetized with topical anesthesia and the [employer] [id number] endoscope was introduced through the mouth and advanced to the second portion of the duodenum. Retroflexion was performed and was normal The gastroscope was then slowly withdrawn and removed. ESOPHAGUS: There was a 6cm segment of suspected New's esophagus found in the distal esophagus. The length of circumferential New's was 2cm ([place] C2) and the length of Maximal extent of New's was 3cm ([place] M3). There was no nodular mucosa noted in the New's segment. Multiple biopsies were performed using cold forceps. Sample sent for histology. STOMACH: The mucosa of the stomach appeared normal. DUODENUM: The duodenal mucosa appeared normal in the bulb and second portion of the duodenum. ADVERSE EVENTS: There were no complications. IMPRESSIONS: 1. There was a 6cm segment of suspected New's esophagus found in the distal esophagus; multiple biopsies were performed , wide open GE junction and esophagus, no narrowing or strictures. 2. The mucosa of the stomach appeared normal 3. Normal duodenal mucosa in the bulb and second portion of the duodenum 4. Retroflexion was performed and was normal RECOMMENDATIONS: 1. Await biopsy results. Biopsy results will not be ready for 7-10 days. If you don't hear from us in two weeks, call our office for biopsy results. 2. Esophageal manometry PATIENT CONDITION: stable DISPOSITION: Observation REPEAT EXAM: NONE Arlin Lorenzana MD eSigned: Arlin Lorenzana MD 05/06/2017 9:41 AM cc: PATIENT NAME: Lucas Ayoub MR#: [id number]
[2017-05-06] MEDS ORDERED: CHLORHEXIDINE GLUCONATE 2 % 1 PACK (2 CLOTHS) TOPICAL PRN (09:45)
[2017-05-06] MEDS ORDERED: POVIDONE IODINE 5% (ANTISEPSIS KIT) 4 APPLICATIONS EACH NARE PRN (09:45)
[2017-05-06] MEDS ORDERED: METOPROLOL TARTRATE 25 MG TAB PO PRN (09:45)
[2017-05-06] MEDS ORDERED: LACTATED RINGER'S 1000 ML IV PRN (09:45)
[2017-05-06] MEDS ORDERED: SODIUM CHLORID 0.9% 500 ML IV PRN (09:45)
[2017-05-06] MEDS: ASPIRIN 81 MG CHEW TAB CHEW SCH (10:41)
[2017-05-06] MEDS: NS + KCL 20 MEQ INJ 1,000 ML IV SCH (10:42)
[2017-05-06] MEDS: SODIUM CHLORIDE 0.9% FLUSH 10 ML FLUSH IV FLUSH SCH ×2 (10:42→21:00)
[2017-05-06] MEDS ORDERED: PROPOFOL 200 MG/20 ML AMP IV ONE (12:00)
--- NOTE | 2017-05-06 13:39 | HHI.PR ---
Subjective Remarks Pt had EGD today which noted 6cm segment of suspected New's esophagus in the distal esophagus, wide open GE junction and esophagus, no narrowing or strictures. Pt not happy about modified diet Pt feels that his throat is more sore since the endoscopy and complains of cough Objective Vitals Vital Signs Date Time Temp Pulse Resp B/P (MAP) Pulse Ox O2 Delivery O2 Flow Rate FiO2 05/06/17 12:00 96.3 103 18 138/66 (90) 99 05/06/17 09:50 97.7 88 18 111/72 (85) 93 05/06/17 09:16 97.6 96 18 120/65 (83) 97 05/06/17 08:00 Nasal Cannula 2.00 05/06/17 08:00 97.6 101 18 138/71 (93) 99 05/06/17 07:43 97 Nasal Cannula 2.00 05/06/17 04:00 98.7 94 18 122/70 (87) 92 05/06/17 00:27 80 05/06/17 00:00 98.1 92 18 120/72 (88) 94 05/05/17 20:06 93 05/05/17 20:00 Nasal Cannula 2.00 05/05/17 20:00 96.0 94 19 121/77 (92) 96 05/05/17 16:00 96.6 104 18 138/75 (96) 94 05/05/17 15:45 97 Nasal Cannula 2.00 05/06/17 05/06/17 05/07/17 15:00 23:00 07:00 Intake Total 200 ml Balance 200 ml Other 200 ml Result Diagram: 05/06/1763005/06/1731 Other Results Laboratory Tests Test 05/04/17 18:45 05/05/17 07:03 05/06/17 06:31 Total Creatine Kinase 53 U/L 36 U/L Troponin I 0.77 NG/ML 0.35 NG/ML Blood Urea Nitrogen 42 MG/DL 35 MG/DL Creatinine 1.33 MG/DL 1.13 MG/DL Random Glucose 154 MG/DL 100 MG/DL Calcium Level 8.6 MG/DL 8.0 MG/DL Sodium Level 127 MEQ/L 131 MEQ/L Potassium Level 3.8 MEQ/L 3.6 MEQ/L Chloride Level 97 MEQ/L 102 MEQ/L Carbon Dioxide Level 19.5 MEQ/L 23.0 MEQ/L Anion Gap 11 MEQ/L 6 MEQ/L Estimat Glomerular Filtration Rate 53 ML/MIN 64 ML/MIN White Blood Count 7.2 TH/MM3 Red Blood Count 2.56 MIL/MM3 Hemoglobin 9.5 GM/DL Hematocrit 25.8 % Mean Corpuscular Volume 100.6 FL Mean Corpuscular Hemoglobin 37.1 PG Mean Corpuscular Hemoglobin Concent 36.9 % Red Cell Distribution Width 12.8 % Platelet Count 331 TH/MM3 Mean Platelet Volume 7.0 FL Neutrophils (%) (Auto) 80.1 % Lymphocytes (%) (Auto) 7.7 % Monocytes (%) (Auto) 11.1 % Eosinophils (%) (Auto) 0.9 % Basophils (%) (Auto) 0.2 % Neutrophils # (Auto) 5.8 TH/MM3 Lymphocytes # (Auto) 0.6 TH/MM3 Monocytes # (Auto) 0.8 TH/MM3 Eosinophils # (Auto) 0.1 TH/MM3 Basophils # (Auto) 0.0 TH/MM3 CBC Comment AUTO DIFF Differential Comment AUTO DIFF CONFIRMED Magnesium Level 1.9 MG/DL Imaging Last Impressions Chest X-Ray 05/06/17 0600 Signed Impressions: Service Date/Time: Saturday, May 06, 2017 06:08 - CONCLUSION: Worsening consolidation of the right lung. Left lower lobe consolidation is stable as are the small effusions. Russel Cutler Jr., MD Upper GI/Barium Swallow X-Ray 05/04/17 0000 Signed Impressions: Service Date/Time: Thursday, May 04, 2017 10:10 - CONCLUSION: No evidence of stricture. Crispin Nguyen MD Chest CT 05/04/17 0000 Signed Impressions: Service Date/Time: Thursday, May 04, 2017 17:09 - CONCLUSION: 1. Moderate-sized bilateral pleural effusions and patchy areas of airspace opacity throughout both lungs. 2. Nonspecific superior and middle mediastinal lymph nodes which are only slightly enlarged, measuring up to 1.3 cm. Russel Evans MD Last Impressions Chest X-Ray 05/04/17 0926 Signed Impressions: Service Date/Time: Thursday, May 04, 2017 09:49 - CONCLUSION: 1. Interstitial vascular prominence characteristic of congestive heart failure. 2. Bibasilar airspace disease. 3. Small bilateral effusions. Crispin Nguyen MD Upper GI/Barium Swallow X-Ray 05/04/17 0000 Signed Impressions: Service Date/Time: Thursday, May 04, 2017 10:10 - CONCLUSION: No evidence of stricture. Crispin Nguyen MD Chest CT 05/04/17 0000 Signed Impressions: Service Date/Time: Thursday, May 04, 2017 17:09 - CONCLUSION: 1. Moderate-sized bilateral pleural effusions and patchy areas of airspace opacity throughout both lungs. 2. Nonspecific superior and middle mediastinal lymph nodes which are only slightly enlarged, measuring up to 1.3 cm. Russel Evans MD Objective Remarks General: NAD, AAOx3 Chest: Rhonchus breath sounds bilaterally Cardiac: Tachy Abd: +BS, soft ND/NT Ext: No edema A/P Problem List: (1) Dysphagia ICD Codes: R13.10 - Dysphagia, unspecified Status: Acute Plan: - Patient is 72 yo with achalasia, PAD, hx NHL, MGUS, and HTN who presented with complaints of difficulty swallowing primarily solids and with persistent cough. The patient presents with a worsening of his dysphagia over past week. He is having trouble swallowing solids and sometimes liquids. The food regurgitates after about 20 minutes. The patient denies aspiration. - In the past he has followed with [facility] for his achalasia and has had Botox/dilations previously. Then Dr Mg performed a Heller myotomy and Ruslan Fundoplication in 2015. Pt was seen by GI on 05/02 and they had an EGD and dilation planned for this Friday. - Lab work last week showed dehydration and also NA 120 on 04/30, nut typically his Na+ is around 129/130 - UGI/Barium swallow (05/04) --> No evidence of stricture. - GI is following - ST evaluating --> recommending Mechanical soft food with chopped meat with gravy and thin liquids. - EGD (05/06)--> 6cm segment of suspected New's esophagus in the distal esophagus, wide open GE junction and esophagus, no narrowing or strictures. - Protonic 40mg IV daily - Zofran PRN - GI recommending outpt manometry (2) Hyponatremia ICD Codes: E87.1 - Hypo-osmolality and hyponatremia Status: Acute Plan: - Its felt that the pts hyponatremia is most likely dehydration related - He is on IVF with NS with KCL @ 50mL/hr - Labs are improving appropriately - Pt also drinks alcohol daily - Pt was started on Librium 10mg TID on 05/05 - Ativan PRN (3) Dehydration ICD Codes: E86.0 - Dehydration Status: Acute Plan: - See above - Pt also with noted YOLANDA felt to be related to dehydration - Cr 1.37/BUN 38, GFR 51 at admission - Labs are improving (4) Elevated troponin ICD Codes: R74.8 - Abnormal levels of other serum enzymes Plan: - Pt has not had any chest pain - Troponin was noted to be elevated at admission at 0.94 --> 0.77 --> 0.35 - May have been related to YOLANDA (5) Cough ICD Codes: R05 - Cough Status: Acute Plan: - Pt with complaints of cough and had noted bilateral rhonchi at admission. - This could be pneumonitis but no clear aspiration hx. - CXR at admission noted interstitial vascular prominence characteristic of congestive heart failure, bibasilar airspace disease and small bilateral effusions. - Chest CT (05/05/17) --> Moderate-sized bilateral pleural effusions and patchy areas of airspace opacity throughout both lungs, nonspecific superior and middle mediastinal lymph nodes which are only slightly enlarged, measuring up to 1.3 cm. - 2D echo ordered to evaluate for LV dysfunction/CHF - Pt was given a dose of Solu-Medrol in the ED - Cont. Duonebs Q4H WA - Tessalon pearls PRN - Repeat CXR (05/06) --> Worsening consolidation of the right lung. Left lower lobe consolidation is stable as are the small effusions. - We will stop IVF - Thoracentesis with fluid analysis (6) HTN (hypertension) ICD Codes: I10 - Essential (primary) hypertension Status: Chronic Plan: - BP has been low/normal - Home BP meds on hold for now (7) EtOH dependence ICD Codes: F10.20 - Alcohol dependence, uncomplicated Status: Chronic Plan: - Pt drinks 4-5 alcoholic beverage per day - CIWA protocol ordered - Pt more tremulous today - Start Librium 10mg TID - Ativan PRN (8) MGUS (monoclonal gammopathy of unknown significance) ICD Codes: D47.2 - Monoclonal gammopathy Status: Chronic (9) NHL (non-Hodgkin's lymphoma) ICD Codes: C85.90 - Non-Hodgkin lymphoma, unspecified, unspecified site Status: Resolved (10) PAD (peripheral artery disease) ICD Codes: I73.9 - PAD (peripheral artery disease) Status: Chronic Assessment and Plan Patient examined. Assessment and plan formulated with Marcie Null PA-C. I agree with the above. Problem Qualifiers (1) Dysphagia: Qualified Codes: R13.10 - Dysphagia, unspecified Marcie Null May 06, 2017 13:39 Ricardo Garzon DO May 11, 2017 00:30
[2017-05-06 16:36] LABS: INTERNATIONAL NORMALIZED RATIO 1.2 RATIO; PROTHROMBIN TIME - PATIENT 11.7 SEC (9.8-11.6)
[2017-05-06 17:33] LABS: TOTAL PROTEIN 7.8 GM/DL (6.4-8.2)
--- NOTE | 2017-05-06 18:38 | ECHRPT ---
Indication: CHEST PAIN CONCLUSIONS Normal left ventricular size. Wall thickness is normal. The left ventricular systolic function is moderately reduced with an estimated ejection fraction in the range of 35-40%. Anteroseptal and apical hypokinesis. There is distinct regional wall motion abnormalities. The left atrial size is moderately dilated. The right atrial size is moderately dilated. [id number] mitral valve regurgitation. There is mild to moderate tricuspid valve regurgitation. The estimated pulmonary arterial pressure is 34 mmHg. Mild pulmonary valve regurgitation. A right sided pleural effusion is present. BP: 102 / 59 HR: 86 Rhythm: Sinus, PACs MEASUREMENTS (Male / Female) Normal Values Technical Quality:Fair 2D ECHO LV Diastolic Diameter PLAX 5.5 cm 4.2 - 5.9 / 3.9 - 5.3 cm LV Systolic Diameter PLAX 4.2 cm IVS Diastolic Thickness 0.8 cm 0.6 - 1.0 / 0.6 - 0.9 cm LVPW Diastolic Thickness 0.8 cm 0.6 - 1.0 / 0.6 - 0.9 cm LV Relative Wall Thickness 0.3 RV Internal Dim ED PLAX 3.0 cm LVOT Diameter 2.0 cm Aortic Root Diameter 3.4 cm LA Systolic Diameter LX 3.5 cm 3.0 - 4.0 / 2.7 - 3.8 cm M-MODE AV Cusp Separation MM 2.4 cm DOPPLER AV Peak Velocity 128.0 cm/s AV Peak Gradient 6.6 mmHg AV Mean Gradient 4.0 mmHg AV Velocity Time Integral 22.8 cm LVOT Peak Velocity 105.0 cm/s LVOT Peak Gradient 4.4 mmHg LVOT Velocity Time Integral 19.1 cm AV Area Cont Eq vti 2.6 cm AV Area Cont Eq pk 2.6 cm Mitral E Point Velocity 91.3 cm/s Mitral A Point Velocity 93.8 cm/s Mitral E to A Ratio 1.0 LV E' Lateral Velocity 6.1 cm/s Mitral E to LV E' Lateral Ratio 14.9 LV E' Septal Velocity 9.1 cm/s Mitral E to LV E' Septal Ratio 10.1 TR Peak Velocity 246.7 cm/s TR Peak Gradient 24.3 mmHg Right Atrial Pressure 10.0 mmHg Pulmonary Artery Systolic Pressu 34.3 mmHg Right Ventricular Systolic Press 34.3 mmHg PV Peak Velocity 63.1 cm/s PV Peak Gradient 1.6 mmHg FINDINGS LEFT VENTRICLE Normal left ventricular size. Wall thickness is normal. The left ventricular systolic function is moderately reduced with an estimated ejection fraction in the range of 35-40%. Anteroseptal and apical hypokinesis. RIGHT VENTRICLE Normal right ventricular size and systolic function. LEFT ATRIUM The left atrial size is moderately dilated. RIGHT ATRIUM The right atrial size is moderately dilated. ATRIAL SEPTUM No atrial level shunt is demonstrated by color flow Doppler interrogation. AORTA The aortic root and proximal ascending aorta are not well visualized. MITRAL VALVE [id number] mitral valve regurgitation. AORTIC VALVE Trileaflet aortic valve. No aortic valve stenosis or regurgitation. TRICUSPID VALVE There is mild to moderate tricuspid valve regurgitation. The estimated pulmonary arterial pressure is 34.3 mmHg. PULMONARY VALVE Mild pulmonary valve regurgitation. VESSELS The inferior vena cava is normal in size. PERICARDIUM No pericardial effusion. A right sided pleural effusion is present. Bre Pappas MD, FACC (Electronically Signed) Final Date:06 May 2017 18:37
--- NOTE | 2017-05-06 20:15 | EKG ---
Date Performed: 05/05/2017 Time Performed: 16:23:50 PTAGE: 72 years EKG: Sinus rhythm WITH FREQUENT SUPRAVENTRICULAR PREMATURE COMPLEXES SEPTAL MYOCARDIAL INFARCTION ABNORMAL ECG PREVIOUS TRACING : 05/04/2017 21.08 Since the previous tracing, no significant change noted DOCTOR: Bre Pappas Interpretating Date/Time 05/06/2017 20:14:20
[2017-05-07] VITALS (11 sets, daily range): BP systolic 117–143; BP diastolic 63–89; PULSE 85–104; RESP 16–21; TEMP 96.3–99.9; O2SAT 92–99
[2017-05-07] MEDS: PANTOPRAZOLE SODIUM 40 MG VIAL IV PUSH SCH ×2 (05:30→18:21)
[2017-05-07] MEDS: RESP: ALBUTEROL 2.5 MG/IPRATROPIUM 0.5 MG NEB (SCH) NEB ×4 (07:55→19:43)
--- NOTE | 2017-05-07 11:34 | RADRPT ---
EXAM DATE/TIME: 05/07/2017 11:13 [facility] COMPARISON: No previous studies available for comparison. INDICATIONS : Post right thoracentesis. Cough. MEDICAL HISTORY : None. SURGICAL HISTORY : Right thoracentesis ENCOUNTER: Initial ACUITY: 1 day PAIN SCORE: 10/10 LOCATION: Bilateral chest FINDINGS: There is no evidence of pneumothorax status post right thoracentesis. No significant residual right p leural effusion is noted. Tiny left pleural effusion is noted. Perihilar and bibasilar infiltrates ar e noted consistent with pulmonary edema versus pneumonia. CONCLUSION: No pneumothorax status post right thoracentesis. No significant residual right pleural effusion. Tiny left pleural effusion. Perihilar and bibasilar infiltrates consistent with pulmonary edema versus pn eumonia. Ryan Patel MD on May 07, 2017 at 11:30 Board Certified Radiologist. This report was verified electronically.
--- NOTE | 2017-05-07 11:51 | RADRPT ---
EXAM DATE/TIME: 05/07/2017 10:23 [facility] COMPARISON: No previous studies available for comparison. EXTERNAL COMPARISON: [facility], PET CT Tumor, May [address] Chest 05/02/2015. INDICATIONS : Right pleural effusion. MEDICAL HISTORY : Leg stent. Lithotripsy. GERD. Lymphoma. Hypertension. SURGICAL HISTORY : New's esophagus. esophagus stretching. ENCOUNTER: Initial ACUITY: 1 day PAIN SCORE: 9/10 LOCATION: Right chest FLUID: Total volume of 1000 cc of clear, yellow fluid was removed. Fluid was sent to lab for ordered studies. TECHNIQUE: 1. Ultrasound guidance for thoracentesis. 2. Thoracentesis. The risks, benefits, and alternatives to ultrasound guided thoracentesis were explained to the patien t in lay simple terms, including the risk of bleeding and infection. Written and verbal informed con sent was obtained. Appropriate area for thoracentesis was marked under ultrasound guidance with the patient in the uprig ht position. Overlying skin was prepped and draped in the usual sterile fashion and with local anest hetic, a dermatotomy was made with an 11 blade scalpel. A 6 [place] thoracentesis catheter was placed in the pleural space and fluid was removed. Catheter was then removed and a sterile dressing applie d. There were no immediate complications. The patient tolerated the procedure well and the left the ultrasound suite in stable condition. Chest radiograph is to be obtained. CONCLUSION: Uncomplicated ultrasound guided thoracentesis. Ryan Patel MD on May 07, 2017 at 11:48 Board Certified Radiologist. This report was verified electronically.
[2017-05-07] MEDS ORDERED: LIDOCAINE HCL 1% 20 ML VIAL SQ ONE (11:53)
[2017-05-07] MEDS: BENZONATATE 100 MG CAP PO PRN ×2 (12:53)
[2017-05-07] MEDS: SODIUM CHLORIDE 0.9% FLUSH 10 ML FLUSH IV FLUSH SCH ×2 (12:54→21:18)
[2017-05-07] MEDS: ASPIRIN 81 MG CHEW TAB CHEW SCH (12:54)
[2017-05-07 12:59] LABS: TOTAL PROTEIN,PLEURAL FLUID 2.9 GM/DL
[2017-05-07 13:59] LABS: PLEURAL FLUID EOS 1 %; PLEURAL FLUID HISTIOCYTES 2 %; PLEURAL FLUID LYMPHS 65 %; PLEURAL FLUID MESOTHELIAL 2 %; PLEURAL FLUID MONOS 19 %; PLEURAL FLUID POLYS (SEGS) 11 %; PLEURAL FLUID RBC 727 /MM3 (0-0); PLEURAL FLUID WBC 215 /MM3 (0-10)
--- NOTE | 2017-05-07 14:34 | HHI.GIFU ---
Subjective Remarks Resting in the bed comfortable Eyes closed but responds to verbal stimuli Notes some mild left upper quadrant pain often known Mucus Cough but denies any vomiting (Erica Contreras) Objective Vitals I&O Vital Signs Date Time Temp Pulse Resp B/P (MAP) Pulse Ox O2 Delivery O2 Flow Rate FiO2 05/07/17 12:33 98.3 90 17 128/65 (86) 99 05/07/17 12:00 86 18 126/89 (101) 97 05/07/17 11:45 85 18 127/75 (92) 96 05/07/17 11:30 98.1 88 18 123/76 (92) 95 05/07/17 08:00 96.3 104 16 143/65 (91) 99 05/07/17 08:00 94 Nasal Cannula 2.00 05/07/17 04:17 99.4 95 21 130/73 (92) 93 05/07/17 00:15 100 05/07/17 00:00 99.9 104 16 117/65 (82) 98 05/06/17 20:28 92 Nasal Cannula 2.00 05/06/17 20:00 98.8 100 21 141/79 (99) 97 05/06/17 19:15 Nasal Cannula 2.00 05/06/17 16:10 99 Nasal Cannula 2.00 05/06/17 16:00 97.7 109 18 151/88 (109) 93 I/O 05/06/17 05/06/17 05/06/17 05/07/17 05/07/17 05/07/17 07:00 15:00 23:00 07:00 15:00 23:00 Intake Total 0 ml 200 ml 460 ml 580 ml Output Total 800 ml 3 ml Balance -800 ml 200 ml 457 ml 580 ml Intake Oral 0 ml 460 ml 580 ml Other 200 ml Output Urine Total 800 ml 3 ml # Voids 5 # Bowel Movements 0 1 2 Laboratory Laboratory Tests Test 05/06/17 15:50 05/06/17 16:28 05/07/17 06:33 05/07/17 10:45 Prothrombin Time 11.7 Prothromb Time International Ratio 1.2 Lactate Dehydrogenase 389 Total Protein 7.8 Activated Partial Thromboplast Time 26.1 Pleural Fluid WBC 215 Pleural Fluid RBC 727 Pleural Fluid Neutrophils 11 Pleural Fluid Lymphocytes 65 Pleural Fluid Monocytes 19 Pleural Fluid Eosinophils 1 Pleural Fluid Histiocytes 2 Pleural Fluid Mesothelial Cells 2 Pleural Fluid Comment Pleural Fluid Total Protein 2.9 Pleural Fluid LDH 74 Date/Time Source Procedure Growth Status 05/04/17 09:39 Blood Peripheral Aerobic Blood Culture - Preliminary NO GROWTH IN 3 DAYS Resulted 05/04/17 09:39 Blood Peripheral Anaerobic Blood Culture - Preliminary NO GROWTH IN 3 DAYS Resulted 05/07/17 10:45 Fluid Pleural Fluid Gram Stain Pending Received 05/07/17 10:45 Fluid Pleural Fluid Body Fluid Culture Pending Received 05/04/17 09:33 Nasal Aspirate Influenza Types A,B Antigen (SUJIT) - Final NEGATIVE FOR FLU A AND B ANTIGEN.... Complete Imaging Last Impressions Thoracentesis Ultrasound 05/07/17 0000 Signed Impressions: Service Date/Time: Sunday, May 07, 2017 10:23 - CONCLUSION: Uncomplicated ultrasound guided thoracentesis. Ryan Patel MD Chest X-Ray 05/07/17 0000 Signed Impressions: Service Date/Time: Sunday, May 07, 2017 11:13 - CONCLUSION: No pneumothorax status post right thoracentesis. No significant residual right pleural effusion. Tiny left pleural effusion. Perihilar and bibasilar infiltrates consistent with pulmonary edema versus pneumonia. Ryan Patel MD Upper GI/Barium Swallow X-Ray 05/04/17 0000 Signed Impressions: Service Date/Time: Thursday, May 04, 2017 10:10 - CONCLUSION: No evidence of stricture. Crispin Nguyen MD Chest CT 05/04/17 0000 Signed Impressions: Service Date/Time: Thursday, May 04, 2017 17:09 - CONCLUSION: 1. Moderate-sized bilateral pleural effusions and patchy areas of airspace opacity throughout both lungs. 2. Nonspecific superior and middle mediastinal lymph nodes which are only slightly enlarged, measuring up to 1.3 cm. Russel Evans MD Physical Exam HEENT: Pupils round and reactive to light; normocephalic; atraumatic; no jaundice. Mucoid cough NECK: Neck is supple CHEST: No obvious wheezing or rhonchi diminished breath sounds CARDIAC: Regular rate and rhythm ABDOMEN: Soft, mild bloating, mild left upper quadrant soreness to light palpation no hepatosplenomegaly; bowel sounds are present in all four quadrants. EXTREMITIES: No clubbing, cyanosis, or edema. SKIN: Turgor thin; no rash; no jaundice. CEMENT RUBBER: Awakens speech is understandable, answers simple symptom questions (Erica Contreras) Assessment and Plan Plan Assessment - Dysphagia mostly with solids, denies dysphagia with liquids. History of, has needed EGD with dilatation and Botox in the past, however, states has not needed dilation since Ruslan Fundoplication with Heller myotomy which was done September 2015. Last EGD was one years ago, states Barretts esophagus. Pt had an appt to have EGD with dilation done tomorrow. Symptoms worsening since Friday. Speech therapy recommendations noted --> Mechanical soft food with chopped meat with gravy and thin liquids. Barium swallow --> No evidence of stricture. - Diarrhea- started a few days prior to arrival. Denies fever, chills, recent abx. - Transaminitis- consistent with daily ETOH intake of 4-5 drinks a day - SOB/ CHF exacerbation- elevated BNP- per attending SpO2 95-100% on 2 L O2 Via NC - YOLANDA per attending EGD on 05/06/17, no complications noted 6cm segment of suspected New's esophagus found in the distal esophagus; multiple biopsies were performed , wide open GE junction and esophagus, no narrowing or strictures. The mucosa of the stomach, duodenum appeared normal Paracentesis with 1100 cc of fluid removed, 05/07/17 lab results from fluid noted. Plan: Diet per speech therapy, currently on heart healthy, does note new quit cough Await biopsy results if you do not hear from us in 2 weeks call our office Protonix Zofran MiraLAX as needed Stool studies pending Further recommendations to follow based on findings of above Pt has been seen and examined by myself and Dr. Lorenzana and this note is written on his behalf (Erica Contreras) Physician Comments Seen and examined, plan as above. Nothing to add from GI point of view. Will sign off for now, check biopsy results as outpatient. (Arlin Lorenzana MD) Erica Contreras May 07, 2017 14:34 Arlin Lorenzana MD May 07, 2017 15:24
[2017-05-07] MEDS ORDERED: POLYETHYLENE GLYCOL 17 GM PKG PO PRN (14:45)
--- NOTE | 2017-05-07 16:35 | HHI.PR ---
Subjective Remarks Patient resting in bed awakens easily to voice continues to have nonproductive cough S/P right sided thoracentesis 05/07 with 1,000 ml removed Objective Vitals Vital Signs Date Time Temp Pulse Resp B/P (MAP) Pulse Ox O2 Delivery O2 Flow Rate FiO2 05/07/17 12:33 98.3 90 17 128/65 (86) 99 05/07/17 12:00 86 18 126/89 (101) 97 05/07/17 11:45 85 18 127/75 (92) 96 05/07/17 11:30 98.1 88 18 123/76 (92) 95 05/07/17 08:00 96.3 104 16 143/65 (91) 99 05/07/17 08:00 94 Nasal Cannula 2.00 05/07/17 04:17 99.4 95 21 130/73 (92) 93 05/07/17 00:15 100 05/07/17 00:00 99.9 104 16 117/65 (82) 98 05/06/17 20:28 92 Nasal Cannula 2.00 05/06/17 20:00 98.8 100 21 141/79 (99) 97 05/06/17 19:15 Nasal Cannula 2.00 Result Diagram: 05/06/17 0631 05/06/17 0631 Imaging Last Impressions Chest X-Ray 05/06/17 0600 Signed Impressions: Service Date/Time: Saturday, May 06, 2017 06:08 - CONCLUSION: Worsening consolidation of the right lung. Left lower lobe consolidation is stable as are the small effusions. Russel Cutler Jr., MD Upper GI/Barium Swallow X-Ray 05/04/17 0000 Signed Impressions: Service Date/Time: Thursday, May 04, 2017 10:10 - CONCLUSION: No evidence of stricture. Crispin Nguyen MD Chest CT 05/04/17 0000 Signed Impressions: Service Date/Time: Thursday, May 04, 2017 17:09 - CONCLUSION: 1. Moderate-sized bilateral pleural effusions and patchy areas of airspace opacity throughout both lungs. 2. Nonspecific superior and middle mediastinal lymph nodes which are only slightly enlarged, measuring up to 1.3 cm. Russel Evans MD Last Impressions Chest X-Ray 05/04/17 0926 Signed Impressions: Service Date/Time: Thursday, May 04, 2017 09:49 - CONCLUSION: 1. Interstitial vascular prominence characteristic of congestive heart failure. 2. Bibasilar airspace disease. 3. Small bilateral effusions. Crispin Nguyen MD Upper GI/Barium Swallow X-Ray 05/04/17 0000 Signed Impressions: Service Date/Time: Thursday, May 04, 2017 10:10 - CONCLUSION: No evidence of stricture. Crispin Nguyen MD Chest CT 05/04/17 0000 Signed Impressions: Service Date/Time: Thursday, May 04, 2017 17:09 - CONCLUSION: 1. Moderate-sized bilateral pleural effusions and patchy areas of airspace opacity throughout both lungs. 2. Nonspecific superior and middle mediastinal lymph nodes which are only slightly enlarged, measuring up to 1.3 cm. Russel Evans MD Objective Remarks General: NAD, AAOx3 Chest: Rhonchus breath sounds bilaterally- improving Cardiac: regular rate and rhythm Abd: +BS, soft ND/NT Ext: No edema Procedures S/P right sided thoracentesis 05/07 with 1,000 ml removed A/P Problem List: (1) Dysphagia ICD Codes: R13.10 - Dysphagia, unspecified Status: Acute Plan: - Patient is 72 yo with achalasia, PAD, hx NHL, MGUS, and HTN who presented with complaints of difficulty swallowing primarily solids and with persistent cough. The patient presents with a worsening of his dysphagia over past week. He is having trouble swallowing solids and sometimes liquids. The food regurgitates after about 20 minutes. The patient denies aspiration. - In the past he has followed with [facility] for his achalasia and has had Botox/dilations previously. Then Dr Mg performed a Heller myotomy and Ruslan Fundoplication in 2016. Pt was seen by GI on 05/02 and they had an EGD and dilation planned for this Friday. - Lab work last week showed dehydration and also NA 120 on 04/30, nut typically his Na+ is around 129/130 - UGI/Barium swallow (05/04) --> No evidence of stricture. - GI is following - ST evaluating --> recommending Mechanical soft food with chopped meat with gravy and thin liquids. - EGD (05/06)--> 6cm segment of suspected New's esophagus in the distal esophagus, wide open GE junction and esophagus, no narrowing or strictures. - Protonic 40mg IV daily - Zofran PRN - GI recommending outpt manometry (2) Hyponatremia ICD Codes: E87.1 - Hypo-osmolality and hyponatremia Status: Acute Plan: - Its felt that the pts hyponatremia is most likely dehydration related - He is on IVF with NS with KCL @ 50mL/hr - Labs are improving appropriately - Pt also drinks alcohol daily - Pt was started on Librium 10mg TID on 05/05 - Ativan PRN - recheck BMP in AM (3) Dehydration ICD Codes: E86.0 - Dehydration Status: Acute Plan: - See above - Pt also with noted YOLANDA felt to be related to dehydration - Cr 1.37/BUN 38, GFR 51 at admission - Labs are improving - fluids DC'd (4) Elevated troponin ICD Codes: R74.8 - Abnormal levels of other serum enzymes Plan: - Pt has not had any chest pain - Troponin was noted to be elevated at admission at 0.94 --> 0.77 --> 0.35 - May have been related to YOLANDA (5) Cough ICD Codes: R05 - Cough Status: Acute Plan: - Pt with complaints of cough and had noted bilateral rhonchi at admission. - This could be pneumonitis but no clear aspiration hx. - CXR at admission noted interstitial vascular prominence characteristic of congestive heart failure, bibasilar airspace disease and small bilateral effusions. - Chest CT (05/05/17) --> Moderate-sized bilateral pleural effusions and patchy areas of airspace opacity throughout both lungs, nonspecific superior and middle mediastinal lymph nodes which are only slightly enlarged, measuring up to 1.3 cm. - 2D echo with estimated ejection fraction in the range of 35-40% and anteroseptal and apical hypokinesis. - Pt was given a dose of Solu-Medrol in the ED - Cont. Duonebs Q4H WA - Tessalon pearls PRN - Repeat CXR (05/06) --> Worsening consolidation of the right lung. Left lower lobe consolidation is stable as are the small effusions. - IVF DC'd - S/P right sided thoracentesis 05/07 with 1,000 ml removed fluid analysis pending -> fluid appears to be transudative - repeat CXR in AM (6) HTN (hypertension) ICD Codes: I10 - Essential (primary) hypertension Status: Chronic Plan: - BP has been low/normal - Home BP meds on hold for now (7) EtOH dependence ICD Codes: F10.20 - Alcohol dependence, uncomplicated Status: Chronic Plan: - Pt drinks 4-5 alcoholic beverage per day - CIWA protocol ordered - Pt was noted to be tremulous 05/05 - Librium 10mg TID initialed 05/05, patient no longer tremulous - Ativan PRN (8) MGUS (monoclonal gammopathy of unknown significance) ICD Codes: D47.2 - Monoclonal gammopathy Status: Chronic (9) NHL (non-Hodgkin's lymphoma) ICD Codes: C85.90 - Non-Hodgkin lymphoma, unspecified, unspecified site Status: Resolved (10) PAD (peripheral artery disease) ICD Codes: I73.9 - PAD (peripheral artery disease) Status: Chronic Assessment and Plan Patient examined. Assessment and plan formulated with Concetta Parra PA-C. I agree with the above. Problem Qualifiers (1) Dysphagia: Qualified Codes: R13.10 - Dysphagia, unspecified Concetta Parra May 07, 2017 16:35 Ricardo Garzon DO May 11, 2017 00:31
--- NOTE | 2017-05-07 17:27 | RADRPT ---
EXAM DATE/TIME: 05/07/2017 17:15 [facility] COMPARISON: CHEST EXPIRATION ONLY, May 07, 2017, 11:13. INDICATIONS : Cough. MEDICAL HISTORY : New's esophagus. SURGICAL HISTORY : None. ENCOUNTER: Initial ACUITY: 3 days PAIN SCORE: 0/10 LOCATION: Bilateral chest FINDINGS: There is atelectasis and effusion at the left there there is diffuse infiltrate seen bilaterally. The se are similar to prior examination. The visualized bony structures are grossly intact. CONCLUSION: 1. Continued left basilar consolidation and effusion. Pneumonia is not excluded. 2. Diffuse interstitial infiltrates suggesting edema. Ramiro Mansfield MD on May 07, 2017 at 17:20 Board Certified Radiologist. This report was verified electronically.
[2017-05-08] VITALS (9 sets, daily range): BP systolic 107–125; BP diastolic 58–73; PULSE 88–95; RESP 16–20; TEMP 96.4–99.8; O2SAT 91–97
[2017-05-08] MEDS: BENZONATATE 100 MG CAP PO PRN ×2 (04:03→20:57)
[2017-05-08] MEDS: PANTOPRAZOLE SODIUM 40 MG VIAL IV PUSH SCH ×2 (04:14→17:53)
[2017-05-08] MEDS: RESP: ALBUTEROL 2.5 MG/IPRATROPIUM 0.5 MG NEB (SCH) NEB ×3 (07:50→15:24)
[2017-05-08] MEDS: ASPIRIN 81 MG CHEW TAB CHEW SCH (09:03)
[2017-05-08] MEDS: SODIUM CHLORIDE 0.9% FLUSH 10 ML FLUSH IV FLUSH SCH ×2 (09:03→20:57)
--- NOTE | 2017-05-08 16:57 | HHI.PR ---
Subjective Remarks Patient reports cough is better then yesterday Patient c/o blurred vision which he reports started last . Patient reports he only sees images but unable to see clearly. Patient also reports discomfort opening eyes but denies pain. Objective Vitals Vital Signs Date Time Temp Pulse Resp B/P (MAP) Pulse Ox O2 Delivery O2 Flow Rate FiO2 05/08/17 09:03 94 Room Air 05/08/17 09:03 94 05/08/17 08:00 96 Nasal Cannula 2.00 05/08/17 08:00 97.0 90 18 122/70 (87) 94 05/08/17 07:51 91 21 05/08/17 04:00 99.8 90 20 121/66 (84) 97 05/08/17 00:00 99.6 95 20 125/70 (88) 96 05/07/17 20:00 96.5 102 20 141/72 (95) 96 05/07/17 19:43 94 Nasal Cannula 2.00 Result Diagram: 05/06/1731 05/06/1731 Other Results Laboratory Tests Test 05/06/17 06:31 05/06/17 15:50 05/06/17 16:28 05/07/17 06:33 White Blood Count 7.2 TH/MM3 Red Blood Count 2.56 MIL/MM3 Hemoglobin 9.5 GM/DL Hematocrit 25.8 % Mean Corpuscular Volume 100.6 FL Mean Corpuscular Hemoglobin 37.1 PG Mean Corpuscular Hemoglobin Concent 36.9 % Red Cell Distribution Width 12.8 % Platelet Count 331 TH/MM3 Mean Platelet Volume 7.0 FL Neutrophils (%) (Auto) 80.1 % Lymphocytes (%) (Auto) 7.7 % Monocytes (%) (Auto) 11.1 % Eosinophils (%) (Auto) 0.9 % Basophils (%) (Auto) 0.2 % Neutrophils # (Auto) 5.8 TH/MM3 Lymphocytes # (Auto) 0.6 TH/MM3 Monocytes # (Auto) 0.8 TH/MM3 Eosinophils # (Auto) 0.1 TH/MM3 Basophils # (Auto) 0.0 TH/MM3 CBC Comment AUTO DIFF Differential Comment AUTO DIFF CONFIRMED Blood Urea Nitrogen 35 MG/DL Creatinine 1.13 MG/DL Random Glucose 100 MG/DL Calcium Level 8.0 MG/DL Magnesium Level 1.9 MG/DL Sodium Level 131 MEQ/L Potassium Level 3.6 MEQ/L Chloride Level 102 MEQ/L Carbon Dioxide Level 23.0 MEQ/L Anion Gap 6 MEQ/L Estimat Glomerular Filtration Rate 64 ML/MIN Prothrombin Time 11.7 SEC Prothromb Time International Ratio 1.2 RATIO Lactate Dehydrogenase 389 U/L Total Protein 7.8 GM/DL Activated Partial Thromboplast Time 26.1 SEC Test 05/07/17 10:45 Pleural Fluid WBC 215 /MM3 Pleural Fluid RBC 727 /MM3 Pleural Fluid Neutrophils 11 % Pleural Fluid Lymphocytes 65 % Pleural Fluid Monocytes 19 % Pleural Fluid Eosinophils 1 % Pleural Fluid Histiocytes 2 % Pleural Fluid Mesothelial Cells 2 % Pleural Fluid Comment Pleural Fluid Total Protein 2.9 GM/DL Pleural Fluid LDH 74 U/L Imaging Last Impressions Chest X-Ray 05/06/17 0600 Signed Impressions: Service Date/Time: Saturday, May 06, 2017 06:08 - CONCLUSION: Worsening consolidation of the right lung. Left lower lobe consolidation is stable as are the small effusions. Russel Cutler Jr., MD Upper GI/Barium Swallow X-Ray 05/04/17 0000 Signed Impressions: Service Date/Time: Thursday, May 04, 2017 10:10 - CONCLUSION: No evidence of stricture. Crispin Nguyen MD Chest CT 05/04/17 0000 Signed Impressions: Service Date/Time: Thursday, May 04, 2017 17:09 - CONCLUSION: 1. Moderate-sized bilateral pleural effusions and patchy areas of airspace opacity throughout both lungs. 2. Nonspecific superior and middle mediastinal lymph nodes which are only slightly enlarged, measuring up to 1.3 cm. Russel Evans MD Last Impressions Chest X-Ray 05/04/17 0926 Signed Impressions: Service Date/Time: Thursday, May 04, 2017 09:49 - CONCLUSION: 1. Interstitial vascular prominence characteristic of congestive heart failure. 2. Bibasilar airspace disease. 3. Small bilateral effusions. Crispin Nguyen MD Upper GI/Barium Swallow X-Ray 05/04/17 0000 Signed Impressions: Service Date/Time: Thursday, May 04, 2017 10:10 - CONCLUSION: No evidence of stricture. Crispin Nguyen MD Chest CT 05/04/17 0000 Signed Impressions: Service Date/Time: Thursday, May 04, 2017 17:09 - CONCLUSION: 1. Moderate-sized bilateral pleural effusions and patchy areas of airspace opacity throughout both lungs. 2. Nonspecific superior and middle mediastinal lymph nodes which are only slightly enlarged, measuring up to 1.3 cm. Russel Evans MD Objective Remarks General: NAD, AAOx3 Eye: bilateral eyes erythematous with crusted white exudate Chest: clear bilaterally Cardiac: regular rate and rhythm Abd: +BS, soft ND/NT Ext: No edema Procedures S/P right sided thoracentesis 05/07 with 1,000 ml removed A/P Problem List: (1) Dysphagia ICD Codes: R13.10 - Dysphagia, unspecified Status: Acute Plan: - Patient is 72 yo with achalasia, PAD, hx NHL, MGUS, and HTN who presented with complaints of difficulty swallowing primarily solids and with persistent cough. The patient presents with a worsening of his dysphagia over past week. He is having trouble swallowing solids and sometimes liquids. The food regurgitates after about 20 minutes. The patient denies aspiration. - In the past he has followed with [facility] for his achalasia and has had Botox/dilations previously. Then Dr Mg performed a Heller myotomy and Ruslan Fundoplication in 2015. Pt was seen by GI on 05/02 and they had an EGD and dilation planned for this Friday. - Lab work last week showed dehydration and also NA 120 on 04/30, nut typically his Na+ is around 129/130 - UGI/Barium swallow (05/04) --> No evidence of stricture. - GI is following - ST evaluating --> recommending Mechanical soft food with chopped meat with gravy and thin liquids. - EGD (05/06)--> 6cm segment of suspected New's esophagus in the distal esophagus, wide open GE junction and esophagus, no narrowing or strictures. - Protonic 40mg IV daily - Zofran PRN - GI recommending outpt manometry (2) Hyponatremia ICD Codes: E87.1 - Hypo-osmolality and hyponatremia Status: Acute Plan: - Its felt that the pts hyponatremia is most likely dehydration related - He is on IVF with NS with KCL @ 50mL/hr - Labs are improving appropriately - Pt also drinks alcohol daily - Pt was started on Librium 10mg TID on 05/05 - Ativan PRN - recheck BMP in AM (3) Dehydration ICD Codes: E86.0 - Dehydration Status: Acute Plan: - See above - Pt also with noted YOLANDA felt to be related to dehydration - Cr 1.37/BUN 38, GFR 51 at admission - Labs are improving - fluids DC'd (4) Elevated troponin ICD Codes: R74.8 - Abnormal levels of other serum enzymes Plan: - Pt has not had any chest pain - Troponin was noted to be elevated at admission at 0.94 --> 0.77 --> 0.35 - May have been related to YOLANDA (5) Cough ICD Codes: R05 - Cough Status: Acute Plan: - Pt with complaints of cough and had noted bilateral rhonchi at admission. - This could be pneumonitis but no clear aspiration hx. - CXR at admission noted interstitial vascular prominence characteristic of congestive heart failure, bibasilar airspace disease and small bilateral effusions. - Chest CT (05/05/17) --> Moderate-sized bilateral pleural effusions and patchy areas of airspace opacity throughout both lungs, nonspecific superior and middle mediastinal lymph nodes which are only slightly enlarged, measuring up to 1.3 cm. - 2D echo with estimated ejection fraction in the range of 35-40% and anteroseptal and apical hypokinesis. - Pt was given a dose of Solu-Medrol in the ED - Cont. Duonebs Q4H WA - Tessalon pearls PRN - Repeat CXR (05/06) --> Worsening consolidation of the right lung. Left lower lobe consolidation is stable as are the small effusions. - IVF DC'd - S/P right sided thoracentesis 05/07 with 1,000 ml removed fluid analysis pending -> fluid appears to be transudative - cough improving (6) HTN (hypertension) ICD Codes: I10 - Essential (primary) hypertension Status: Chronic Plan: - BP has been low/normal - Home BP meds on hold for now (7) EtOH dependence ICD Codes: F10.20 - Alcohol dependence, uncomplicated Status: Chronic Plan: - Pt drinks 4-5 alcoholic beverage per day - CIWA protocol ordered - Pt was noted to be tremulous 05/05 - Librium 10mg TID initialed 05/05, patient no longer tremulous - Ativan PRN (8) MGUS (monoclonal gammopathy of unknown significance) ICD Codes: D47.2 - Monoclonal gammopathy Status: Chronic (9) NHL (non-Hodgkin's lymphoma) ICD Codes: C85.90 - Non-Hodgkin lymphoma, unspecified, unspecified site Status: Resolved (10) PAD (peripheral artery disease) ICD Codes: I73.9 - PAD (peripheral artery disease) Status: Chronic (11) Conjunctivitis ICD Codes: H10.9 - Unspecified conjunctivitis Plan: - Patient c/o blurred vision which he reports started last . Patient reports he only sees images but unable to see clearly. Patient also reports discomfort opening eyes but denies pain. - patient evaluated with Dr. Garzon - bilateral eyes erythematous with crusted white exudate- consistent with conjunctivitis - request bilateral eye culture - start cipro eye solution Assessment and Plan Patient examined. Assessment and plan formulated with Concetta Parra PA-C. I agree with the above. Problem Qualifiers (1) Dysphagia: Qualified Codes: R13.10 - Dysphagia, unspecified Concetta Parra May 08, 2017 16:57 Ricardo Garzon DO May 11, 2017 00:32
[2017-05-08 18:14] LABS: BICARBONATE 25.4 MEQ/L (21.0-32.0); CALCIUM 8.4 MG/DL (8.5-10.1); CREATININE 1.2 MG/DL (0.60-1.30)
[2017-05-08] MEDS: CIPROFLOXACIN 0.3% OPTH SOLN 2.5 ML BTL EACH EYE SCH (20:57)
[2017-05-09 00:28] VITALS: BP 135/73; PULSE 95; RESP 16; TEMP 98.7; O2SAT 91
[2017-05-09 04:15] VITALS: BP 113/68; PULSE 94; RESP 18; TEMP 98.7; O2SAT 93
[2017-05-09] MEDS: BENZONATATE 100 MG CAP PO PRN ×2 (04:30→15:07)
[2017-05-09] MEDS: CIPROFLOXACIN 0.3% OPTH SOLN 2.5 ML BTL EACH EYE SCH ×4 (04:31→15:08)
[2017-05-09] MEDS: PANTOPRAZOLE SODIUM 40 MG VIAL IV PUSH SCH (04:31)
[2017-05-09 07:12] LABS: BICARBONATE 23.6 MEQ/L (21.0-32.0); CALCIUM 8.1 MG/DL (8.5-10.1); CREATININE 1.08 MG/DL (0.60-1.30)
[2017-05-09 08:00] VITALS: BP 120/66; PULSE 89; RESP 16; TEMP 98.7; O2SAT 94
[2017-05-09] MEDS: SODIUM CHLORIDE 0.9% FLUSH 10 ML FLUSH IV FLUSH SCH (09:00)
[2017-05-09] MEDS: ASPIRIN 81 MG CHEW TAB CHEW SCH (09:25)
[2017-05-09] MEDS ORDERED: WALKER WHEELS/F1 MIS (09:32)
[2017-05-09] MEDS ORDERED: CIPROFLOXACIN 0.3% EACH EYE (09:36)
[2017-05-09] MEDS ORDERED: PROT40TA PO (09:36)
[2017-05-09] MEDS ORDERED: OPTH EACH EYE (09:36)
--- NOTE | 2017-05-09 09:51 | HHI.DS ---
Discharge Summary Admission Date May 04, 2017 at 11:17 Discharge Date: May 09, 2017 Admitting Diagnosis hyponatremia, dehydration, dysphagia (1) Dysphagia Diagnosis: Principal ICD Codes: R13.10 - Dysphagia, unspecified Status: Acute (2) Hyponatremia Diagnosis: Principal ICD Codes: E87.1 - Hypo-osmolality and hyponatremia Status: Acute (3) Dehydration Diagnosis: Principal ICD Codes: E86.0 - Dehydration Status: Acute (4) Elevated troponin Diagnosis: Principal ICD Codes: R74.8 - Abnormal levels of other serum enzymes (5) Cough Diagnosis: Principal ICD Codes: R05 - Cough Status: Acute (6) HTN (hypertension) Diagnosis: Secondary ICD Codes: I10 - Essential (primary) hypertension Status: Chronic (7) EtOH dependence Diagnosis: Principal ICD Codes: F10.20 - Alcohol dependence, uncomplicated Status: Chronic (8) MGUS (monoclonal gammopathy of unknown significance) Diagnosis: Secondary ICD Codes: D47.2 - Monoclonal gammopathy Status: Chronic (9) NHL (non-Hodgkin's lymphoma) Diagnosis: Secondary ICD Codes: C85.90 - Non-Hodgkin lymphoma, unspecified, unspecified site Status: Resolved (10) PAD (peripheral artery disease) Diagnosis: Secondary ICD Codes: I73.9 - PAD (peripheral artery disease) Status: Chronic (11) Conjunctivitis Diagnosis: Principal ICD Codes: H10.9 - Unspecified conjunctivitis Consultants Dr. Lorenzana, GI Procedures S/P right sided thoracentesis 05/07 with 1,000 ml removed EGD (05/06) with Dr. Lorenzana Brief History Patient is 72 yo with achalasia,, pad, hx NHL, mgus, htn who presents with difficulty swallowing primarily solids and with persistent cough. The patient presents with a worsening of his dysphagia over past week. He is having trouble swallowing solids and sometimes liquids. The food regurgitates after about 20minutes. The patient denies aspiration. In the past for his achalasia [facility] would perform botox /dilations. Then Dr Mg performed a Heller myotomy and ruslan Fundoplication 2015. Seen by GI on 05/02 and they had an egd and dilation planned for this Friday. labwork last week showed dehydration and also NA 120 on 04/30..BL na is around 129/130 CBC/BMP: 05/06/17 0631 05/09/17 0525 Significant Findings Laboratory Tests Test 05/06/17 15:50 05/06/17 16:28 05/07/17 06:33 05/07/17 10:45 Prothrombin Time 11.7 SEC (9.8-11.6) Lactate Dehydrogenase 389 U/L (87-241) Pleural Fluid WBC 215 /MM3 (0-10) Pleural Fluid RBC 727 /MM3 (0-0) Test 05/08/17 17:26 05/09/17 05:25 Blood Urea Nitrogen 25 MG/DL (7-18) 24 MG/DL (7-18) Random Glucose 110 MG/DL (74-106) 114 MG/DL (74-106) Calcium Level 8.4 MG/DL (8.5-10.1) 8.1 MG/DL (8.5-10.1) Sodium Level 134 MEQ/L (136-145) 133 MEQ/L (136-145) Estimat Glomerular Filtration Rate 59 ML/MIN (>89) 67 ML/MIN (>89) Imaging Last Impressions Thoracentesis Ultrasound 05/07/17 0000 Signed Impressions: Service Date/Time: Sunday, May 07, 2017 10:23 - CONCLUSION: Uncomplicated ultrasound guided thoracentesis. Ryan Patel MD Chest X-Ray 05/07/17 0000 Signed Impressions: Service Date/Time: Sunday, May 07, 2017 17:15 - CONCLUSION: 1. Continued left basilar consolidation and effusion. Pneumonia is not excluded. 2. Diffuse interstitial infiltrates suggesting edema. Ramiro Mansfield MD Upper GI/Barium Swallow X-Ray 05/04/17 0000 Signed Impressions: Service Date/Time: Thursday, May 04, 2017 10:10 - CONCLUSION: No evidence of stricture. Crispin Nguyen MD Chest CT 05/04/17 0000 Signed Impressions: Service Date/Time: Thursday, May 04, 2017 17:09 - CONCLUSION: 1. Moderate-sized bilateral pleural effusions and patchy areas of airspace opacity throughout both lungs. 2. Nonspecific superior and middle mediastinal lymph nodes which are only slightly enlarged, measuring up to 1.3 cm. Russel Evans MD PE at Discharge General: NAD, AAOx3 Eye: bilateral eyes erythematous with crusted white exudate Chest: clear bilaterally Cardiac: regular rate and rhythm Abd: +BS, soft ND/NT Ext: No edema Hospital Course Dysphagia - Patient is 72 yo with achalasia, PAD, hx NHL, MGUS, and HTN who presented with complaints of difficulty swallowing primarily solids and with persistent cough. The patient presents with a worsening of his dysphagia over past week. He is having trouble swallowing solids and sometimes liquids. The food regurgitates after about 20 minutes. The patient denies aspiration. - In the past he has followed with [facility] for his achalasia and has had Botox/dilations previously. Then Dr Mg performed a Heller myotomy and Ruslan Fundoplication in 2015. Pt was seen by GI on 05/02 and they had an EGD and dilation planned for this Friday. - Lab work last week showed dehydration and also NA 120 on 04/30, nut typically his Na+ is around 129/130 - UGI/Barium swallow (05/04) --> No evidence of stricture. - GI is following - ST evaluating --> recommending Mechanical soft food with chopped meat with gravy and thin liquids. - EGD (05/06)--> 6cm segment of suspected New's esophagus in the distal esophagus, wide open GE junction and esophagus, no narrowing or strictures. - Protonic 40mg BID - Zofran PRN - GI recommending outpt manometry Hyponatremia- improved - Its felt that the pts hyponatremia is most likely dehydration related - Initially on IVF with NS with KCL which was DC'd - Labs are improving appropriately - Pt also drinks alcohol daily - Pt was started on Librium 10mg TID on 05/05 which was tapered and DC'd - Ativan PRN Dehydration- resolved - See above - Pt also with noted YOLANDA felt to be related to dehydration - Cr 1.37/BUN 38, GFR 51 at admission - Labs are improving - fluids DC'd Elevated troponin - Pt has not had any chest pain - Troponin was noted to be elevated at admission at 0.94 --> 0.77 --> 0.35 - May have been related to YOLANDA Cough - improved - Pt with complaints of cough and had noted bilateral rhonchi at admission. - This could be pneumonitis but no clear aspiration hx. - CXR at admission noted interstitial vascular prominence characteristic of congestive heart failure, bibasilar airspace disease and small bilateral effusions. - Chest CT (05/05/17) --> Moderate-sized bilateral pleural effusions and patchy areas of airspace opacity throughout both lungs, nonspecific superior and middle mediastinal lymph nodes which are only slightly enlarged, measuring up to 1.3 cm. - 2D echo with estimated ejection fraction in the range of 35-40% and anteroseptal and apical hypokinesis. - Pt was given a dose of Solu-Medrol in the ED - Cont. Duonebs Q4H WA - Tessalon pearls PRN - Repeat CXR (05/06) --> Worsening consolidation of the right lung. Left lower lobe consolidation is stable as are the small effusions. - IVF DC'd - S/P right sided thoracentesis 05/07 with 1,000 ml removed fluid analysis pending -> fluid appears to be transudative - cough improving HTN (hypertension) - BP has been low/normal - Home BP meds on hold EtOH dependence - Pt drinks 4-5 alcoholic beverage per day - CIWA protocol ordered - Pt was noted to be tremulous 05/05 - Librium 10mg TID initialed 05/05, patient no longer tremulous - Ativan PRN - patient counselled encouraged to abstain MGUS (monoclonal gammopathy of unknown significance) Chronic NHL (non-Hodgkin's lymphoma) Resolved PAD (peripheral artery disease) Chronic Conjunctivitis - Patient c/o blurred vision which he reports started last . Patient reports he only sees images but unable to see clearly. Patient also reports discomfort opening eyes but denies pain. - patient evaluated with Dr. Garzon - bilateral eyes erythematous with crusted white exudate- consistent with conjunctivitis - request bilateral eye culture - start cipro eye solution (05/08) - 05/09 patient denies blurry vision or discomfort with opening eye today reports this is much better after receiving eye drops Discussed hospital course and DC recommendations with patient's over the phone. Pt Condition on Discharge: Stable Discharge Disposition: Disch w/ Home Health Serv Discharge Instructions DIET: Follow Instructions for: Heart Healthy Diet Activities you can perform: Regular-No Restrictions Follow up Referrals: Clinic - 1 Week with [facility] Gastroenterology - 2 Weeks with Arlin Lorenzana MD Ophthalmology - [address] Lutz PCP Follow-up - [address] Griffin [facility] New Medications: Pantoprazole (Protonix) 40 Mg Tab 40 MG PO BID for Reflux, #60 TAB 0 Refills Walker with Front Wheels (Walker with Front Wheels) 1 Mis Mis EA .XX DIRECTED, #1 0 Refills [Ciprofloxacin 0.3% Opth Soln] () 50 DROP/2.5 ML SOLN 1 DROP EACH EYE Q4HR for eyes for 11 Days, BOTTLE 0 Refills Continued Medications: Aspirin (Aspirin) 81 Mg Chew 81 MG CHEW DAILY, TAB 0 Refills Discontinued Medications: Nifedipine (Procardia) 10 Mg Cap 30 MG PO DAILY for Chest Pain, #180 CAP 0 Refills Omeprazole (Omeprazole) 20 Mg Tab 20 MG PO DAILY, #30 TAB 0 Refills Additional Information Patient examined. Assessment and plan formulated with Concetta Parra PA-C. I agree with the above. Concetta Parra May 09, 2017 09:51 Ricardo Garzon DO May 11, 2017 00:34
[2017-05-09 09:56] VITALS: O2SAT 94
--- NOTE | 2017-05-09 10:08 | HHI.DCPOC ---
Discharge Care Plan Diagnosis: (1) Conjunctivitis (2) Dysphagia (3) Dehydration (4) Hyponatremia Goals to Promote Your Health * To prevent worsening of your condition and complications * To maintain your health at the optimal level Directions to Meet Your Goals Take your medications as prescribed Follow your dietary instruction Follow activity as directed Keep your appointments as scheduled Take your immunizations and boosters as scheduled If your symptoms worsen call your PCP, if no PCP go to Urgent Care Center or Emergency Room Smoking is Dangerous to Your Health. Avoid second hand smoke Call the 24-hour hour crisis hotline for domestic abuse at Concetta Parra May 09, 2017 10:08 Ricardo Garzon DO May 11, 2017 00:34
[2017-05-09 12:00] VITALS: BP 115/58; PULSE 84; RESP 14; TEMP 96.6; O2SAT 94
[2017-05-09 16:00] VITALS: BP 128/61; PULSE 81; RESP 16; TEMP 98.3; O2SAT 95
--- NOTE | 2017-05-09 16:31 | HHI.FF ---
Face to Face Verification Diagnosis: (1) Hyponatremia (2) Dysphagia (3) Cough (4) Conjunctivitis Physical Therapy Order: Evaluate and Treat Home Health Nursing Order: Medical education Signs/symptoms of disease process Medication education-adverse effect Nursing assessment with vital signs I have seen patient Lucas Ayoub on 05/09/17. My clinical findings support the need for the requested home health care services because: Ltd mobility - disease progression Limited ability to care for self I certify that my clinical findings support that this patient is homebound because: Impaired cognitive ability/safety Unsteady gait/balance Concetta Parra May 09, 2017 16:31 Ricardo Garzon DO May 09, 2017 16:32
== END 2017-05-09 17:59 | disposition home health service (06) | DRG 392 ==
LOC: NEPE 09:02 → NEDA 11:17 → N07B 15:47
PROVIDERS: ADMIT Hospitalist; ATTEND Hospitalist
PROC: 0DB58ZX Excision of Esophagus, Via Natural or Artificial Opening Endoscopic, Diagnostic (ICD-10-PCS; principal; 2017-05-06 09:18)
PROC: 0B9 Respiratory System, Drainage (ICD-10-PCS; 2017-05-07)
DX: R13.10 Dysphagia, unspecified (principal); N17.9 Acute kidney failure, unspecified; J90 Pleural effusion, not elsewhere classified; C85.90 Non-Hodgkin lymphoma, unspecified, unspecified site; E87.1 Hypo-osmolality and hyponatremia; I11.0 Hypertensive heart disease with heart failure; I50.9 Heart failure, unspecified; K22.0 Achalasia of cardia; K22.70 Barrett's esophagus without dysplasia; E86.0 Dehydration; D47.2 Monoclonal gammopathy; R19.7 Diarrhea, unspecified; J02.9 Acute pharyngitis, unspecified; R05 Cough; E78.5 Hyperlipidemia, unspecified; I73.9 Peripheral vascular disease, unspecified; R74.0 Nonspecific elevation of levels of transaminase and lactic acid dehydrogenase [LDH]; F10.20 Alcohol dependence, uncomplicated; H53.8 Other visual disturbances; R00.0 Tachycardia, unspecified; H10.9 Unspecified conjunctivitis; R74.8 Abnormal levels of other serum enzymes; Z85.828 Personal history of other malignant neoplasm of skin; Z87.442 Personal history of urinary calculi
CPT/HCPCS: 32555; 71045; 71046; 71250; 74220; 80048; 80053; 81001; 82550; 83605; 83615; 83690; 83735; 83880; 84155; 84157; 84484; 85025; 85610; 85730; 86403; 87040; 87070; 87102; 87147; 87186; 87205; 87206; 87804; 88112; 88305; 89051; 93005; 93306; 94640; 94664; 96361; 96374; 96375; C1729; C9113; J1650; J2060; J2405; J2930; J3480; J7030; J7120; Q9963